=== PATIENT | female | born 1950 | race Caucasian/White ===

== ENCOUNTER → 2017-09-09 | Outpatient (CLI) | payer OTHER ==
--- NOTE | 2017-09-10 11:51 | MG ---
HISTORY: SCREENING Comparison: 06/14/2016 FINDINGS: Bilateral CC and MLO projections of the right and left breast were obtained. Scattered fibroglandula r tissue is seen to be present. A biopsy clip is present within the upper-outer quadrant of the right breast. No significant architectural distortion, mass or clustered microcalcifications can be observ ed to suggest malignancy. No skin thickening or nipple retraction is appreciated. No pathological lymphadenopathy can be identified. Benign-appearing calcifications scattered throughout the right and left breasts are observed. IMPRESSION: NO RADIOGRAPHIC EVIDENCE OF MALIGNANCY. ACR CATEGORY 2 - benign findings. FOLLOW-UP EXAM 1 YEAR. Diagnostic CAD was utilized and reviewed. * 0 (ZERO) - ASSESSMENT INCOMPLETE; ADDITIONAL IMAGING IS NEEDED. * 1/ (ONE) - NEGATIVE. * 2/II (TWO) - BENIGN FINDINGS. * 3/III (THREE) - PROBABLY BENIGN FINDING; SHORT INTERVAL FOLLOW-UP SUGGESTED. * 4/IV (FOUR) - SUSPICIOUS ABNORMALITY; BIOPSY SHOULD BE CONSIDERED. * 5/V - HIGHLY SUSPICIOUS OF MALIGNANCY; BIOPSY SHOULD BE PERFORMED. A NEGATIVE X-RAY REPORT SHOULD NOT DELAY BIOPSY IF A DOMINANT OR CLINICALLY SUSPICIOUS MASS IS PRESENT; 4 TO 8 PERCENT OF CANCERS ARE NOT IDENTIFIED BY X-RAY. A NEGA TIVE REPORT MAY REINFORCE THE CLINICAL IMPRESSION. ADENOSIS AND DENSE BREASTS MAY OBSCURE AN UNDERLY ING NEOPLASM. Reported By:
== END ==
LOC: RAD 10:41
PROVIDERS: ATTEND Specialist
DX: Z12.31 Encounter for screening mammogram for malignant neoplasm of breast (principal)
CPT/HCPCS: 77067

== ENCOUNTER 2019-04-10 07:25 | Inpatient (IN) ==
[2019-04-10 10:25] LABS: BASOPHILS % (AUTO) 0.2 % (0.2-1.0); HEMATOCRIT 43.5 % (36.0-47.0); LYMPHOCYTES # (AUTO) 0.6 X10^3/uL (1.3-2.9); LYMPHOCYTES % (AUTO) 5.1 % (21.0-51.0); MEAN CORPUSCULAR HEMOGLOBIN 31.2 pg (27.0-34.0); MEAN CORPUSCULAR HGB CONC 34.6 g/dL (33.0-35.0); MEAN CORPUSCULAR VOLUME 90.1 fL (80.0-100.0); MEAN PLATELET VOLUME 6.8 fL (7.4-11.0); MONOCYTES # (AUTO) 1.2 x10^3/uL (0.3-0.8); MONOCYTES % (AUTO) 10.6 % (0.0-13.0); NEUTROPHILS # (AUTO) 9.2 x10^3/uL (2.2-4.8); NEUTROPHILS % (AUTO) 84.1 % (42.0-75.0); PLATELET COUNT 407 X10^3/uL (150.0-450.0); RED BLOOD COUNT 4.83 X10^6/uL (3.5-5.4); RED CELL DISTRIBUTION WIDTH 14.5 % (11.6-16.5)
[2019-04-10 10:40] LABS: ALANINE AMINOTRANSFERASE 24 Units/L (12-78); ALBUMIN 2.9 g/dL (3.4-5.0); ALKALINE PHOSPHATASE 82 Units/L (46-116); ASPARTATE AMINO TRANSFERASE 21 Units/L (15-37); BLOOD UREA NITROGEN 14 mg/dL (7-18); CALCIUM 8.8 mg/dL (8.5-10.1); CARBON DIOXIDE 32.7 mmol/L (21-32); CHLORIDE 81 mmol/L (98-107); COR CA(FOR HYPOALB) 9.7 mg/dL (8.5-10.1); CREATININE 0.58 mg/dL (0.55-1.02); TOTAL PROTEIN 6.4 g/dL (6.4-8.2); eGFR NON BLACK RACES > 60 (>60)
[2019-04-10 11:00] LABS: SODIUM 121 mmol/L (136-145)
[2019-04-10 11:33] VITALS: BMI 20.7
[2019-04-10] MEDS ORDERED: NS 1000 ML 1,000 ML ONE (12:48)
[2019-04-10] MEDS: NS 1000 ML 1,000 ML IV SCH (12:55)
[2019-04-10] MEDS: LEVAQUIN PREMIX IV 500 MG 500 MG/100 ML BAG IV SCH (12:55)
[2019-04-10] MEDS: SOLU-Medrol 40 MG VIAL IVP SCH ×3 (12:56→22:02)
[2019-04-10] MEDS: PROTONIX INJ 40 MG VIAL IVP SCH ×2 (12:56→20:37)
[2019-04-10] MEDS ORDERED: POTASSIUM CHL 40 MEQ/NS 0.45% 500 ML IV PRN (13:25)
[2019-04-10] MEDS ORDERED: KLOR-CON PO PRN (13:25)
[2019-04-10] MEDS ORDERED: K-DUR TAB 20 MEQ PO PRN (13:25)
[2019-04-10] MEDS ORDERED: MICRO K EXTEN CAP 10 MEQ PO PRN (13:25)
[2019-04-10] MEDS ORDERED: POTASSIUM CHL 60 MEQ/NS 0.45% 500 ML IV PRN (13:25)
[2019-04-10] MEDS ORDERED: POTASSIUM CHLORIDE LIQ 20 MEQ UDC PO PRN (13:25)
--- NOTE | 2019-04-10 16:00 | RAD ---
HISTORY: Shortness of breath Study: Single-view chest, done portably Comparison: 02/16/2019 Findings: Trachea is midline. Heart size is normal. There is pulmonary vascular congestion increased interstitial markings bilaterally. Left-sided pleural effusion is suspected. Findings have the appearance of COPD with mild superimposed CHF. Edema or infiltrate is present in the left lower lobe. Osseous structures are intact. IMPRESSION: Findings having the appearance of COPD with superimposed CHF. Left-sided pleural effusion is present with left basilar edema or infiltrate. Reported By:
[2019-04-10 16:12] LABS: BILIRUBIN,URINE NEGATIVE (NEGATIVE); BLOOD/HEMOGLOBIN,URINE 1+ (NEGATIVE); GLUCOSE, URINE NEGATIVE (NEGATIVE); KETONES,URINE NEGATIVE (NEGATIVE); LEUKOCYTE ESTERASE ,URINE NEGATIVE (NEGATIVE); NITRITES,URINE NEGATIVE (NEGATIVE); PROTEIN,URINE 1+ (NEGATIVE); UROBILINOGEN,URINE NORMAL (NORMAL)
[2019-04-10 16:20] LABS: APPEARANCE,URINE CLEAR (CLEAR); COLOR,URINE YELLOW (YELLOW)
[2019-04-10 16:21] LABS: BACTERIA,URINE NEGATIVE /HPF (NEGATIVE); SQUAMOUS EPITHELIAL CELL,UR NEGATIVE /HPF (NEGATIVE)
[2019-04-10] MEDS ORDERED: DUONEB 0.5 MG/3 MG NEB SCH (17:00)
[2019-04-10] MEDS: K-RIDER 10 MEQ/NS 100 ML 10 MEQ/100 ML BAG IV PRN ×4 (17:25→20:38)
[2019-04-10] MEDS: DUONEB 0.5 MG/3 MG NEB SCH (21:06)
[2019-04-11] MEDS: MAGNESIUM SULFATE 1 GRAM/100 mL PREMIX 1 GM/100 ML BAG IV PRN ×2 (00:24→01:25)
[2019-04-11] MEDS: NS 1000 ML 1,000 ML IV SCH ×3 (01:59→20:55)
[2019-04-11] MEDS: SOLU-Medrol 40 MG VIAL IVP SCH ×3 (05:11→20:49)
[2019-04-11 05:13] LABS: BASOPHILS % (AUTO) 0 % (0.2-1.0); HEMATOCRIT 42.3 % (36.0-47.0); HEMOGLOBIN 14.7 g/dL (12.0-16.0); LYMPHOCYTES # (AUTO) 0.3 X10^3/uL (1.3-2.9); LYMPHOCYTES % (AUTO) 2.3 % (21.0-51.0); MEAN CORPUSCULAR HGB CONC 34.7 g/dL (33.0-35.0); MEAN CORPUSCULAR VOLUME 89.3 fL (80.0-100.0); MEAN PLATELET VOLUME 6.5 fL (7.4-11.0); MONOCYTES # (AUTO) 1.3 x10^3/uL (0.3-0.8); MONOCYTES % (AUTO) 9.8 % (0.0-13.0); NEUTROPHILS % (AUTO) 87.9 % (42.0-75.0); PLATELET COUNT 403 X10^3/uL (150.0-450.0); RED BLOOD COUNT 4.74 X10^6/uL (3.5-5.4); RED CELL DISTRIBUTION WIDTH 14.7 % (11.6-16.5); WHITE BLOOD COUNT 13.6 X10^3/uL (3.6-10.0)
[2019-04-11 05:25] LABS: ALANINE AMINOTRANSFERASE 24 Units/L (12-78); ALBUMIN 2.7 g/dL (3.4-5.0); ALKALINE PHOSPHATASE 77 Units/L (46-116); ASPARTATE AMINO TRANSFERASE 18 Units/L (15-37); BLOOD UREA NITROGEN 11 mg/dL (7-18); CALCIUM 8.7 mg/dL (8.5-10.1); CARBON DIOXIDE 29.9 mmol/L (21-32); CHLORIDE 83 mmol/L (98-107); COR CA(FOR HYPOALB) 9.7 mg/dL (8.5-10.1); COR NA(FOR HYPERGLY) 120 mmol/L (136-145); CREATININE 0.53 mg/dL (0.55-1.02); TOTAL PROTEIN 6.2 g/dL (6.4-8.2); eGFR NON BLACK RACES > 60 (>60)
[2019-04-11 05:32] LABS: ABG BASE EXCESS 8.7 mmol/L (-2.0-2.0)
[2019-04-11 05:33] LABS: ABG ALLEN TEST POS; ABG HCO3 34.1 mmol/L (22-26)
[2019-04-11 05:37] LABS: SODIUM 119 mmol/L (136-145)
--- NOTE | 2019-04-11 05:57 | RAD ---
Examination: AP chest History: Hypoxia SOB Comparison 04/10/2019 Findings: Continued normal heart size. Vascular congestion with increasing interstitial infiltrates consistent with progressive pulmonary edema. Persistent opacity left base consistent with airspace disease and pleural fluid. Impression: Increasing interstitial disease consistent with progressive pulmonary edema. Stable pleural-parenchymal changes left base, likely related to pneumonia with pleural fluid. Reported By:
[2019-04-11] MEDS ORDERED: LASIX IVP ONE (07:30)
[2019-04-11] MEDS: DUONEB 0.5 MG/3 MG NEB SCH (09:44)
[2019-04-11] MEDS: LEVAQUIN PREMIX IV 500 MG 500 MG/100 ML BAG IV SCH (10:04)
[2019-04-11] MEDS: PROTONIX INJ 40 MG VIAL IVP SCH ×2 (10:05→20:49)
[2019-04-11 10:31] LABS: ABG BASE EXCESS 10.4 mmol/L (-2.0-2.0)
[2019-04-11 10:32] LABS: ABG HCO3 34.3 mmol/L (22-26)
[2019-04-11] MEDS: Atrovent NEB TX 0.02% NEB SCH ×3 (12:09→20:45)
[2019-04-11 12:28] LABS: ABG BASE EXCESS 10.6 mmol/L (-2.0-2.0)
[2019-04-11 12:29] LABS: ABG ALLEN TEST POS; ABG HCO3 35.1 mmol/L (22-26)
[2019-04-11] MEDS ORDERED: SOLU-Medrol 40 MG VIAL IVP SCH (14:00)
[2019-04-11] MEDS ORDERED: MORPHINE SULFATE INJ 2 MG INJ IVP PRN (23:14)
[2019-04-11] MEDS ORDERED: MORPHINE SULFATE INJ 2 MG INJ ONE (23:19)
[2019-04-12] MEDS ORDERED: LASIX IVP ONE (00:38)
[2019-04-12] MEDS ORDERED: VALIUM PO PRN ×2 (00:38→12:11)
[2019-04-12] MEDS ORDERED: LASIX ONE ×2 (00:40→05:09)
[2019-04-12] MEDS ORDERED: VALIUM ONE ×2 (00:40→09:57)
[2019-04-12] MEDS: SOLU-Medrol 40 MG VIAL IVP SCH ×4 (03:51→20:29)
[2019-04-12] MEDS: NS 1000 ML 1,000 ML IV SCH ×2 (04:09→16:45)
[2019-04-12 05:18] LABS: BASOPHILS % (AUTO) 0.1 % (0.2-1.0); HEMOGLOBIN 15.4 g/dL (12.0-16.0); LYMPHOCYTES # (AUTO) 0.2 X10^3/uL (1.3-2.9); LYMPHOCYTES % (AUTO) 1.2 % (21.0-51.0); MEAN CORPUSCULAR HEMOGLOBIN 31.1 pg (27.0-34.0); MEAN CORPUSCULAR HGB CONC 34.3 g/dL (33.0-35.0); MEAN CORPUSCULAR VOLUME 90.6 fL (80.0-100.0); MEAN PLATELET VOLUME 6.6 fL (7.4-11.0); MONOCYTES # (AUTO) 1.6 x10^3/uL (0.3-0.8); NEUTROPHILS # (AUTO) 16.1 x10^3/uL (2.2-4.8); NEUTROPHILS % (AUTO) 89.7 % (42.0-75.0); PLATELET COUNT 384 X10^3/uL (150.0-450.0); RED BLOOD COUNT 4.96 X10^6/uL (3.5-5.4); RED CELL DISTRIBUTION WIDTH 14.7 % (11.6-16.5)
[2019-04-12] MEDS ORDERED: NS 100 ML IV 100 ML IV ONE (05:19)
[2019-04-12 05:40] LABS: ALANINE AMINOTRANSFERASE 22 Units/L (12-78); ALBUMIN 2.6 g/dL (3.4-5.0); ALKALINE PHOSPHATASE 73 Units/L (46-116); ASPARTATE AMINO TRANSFERASE 18 Units/L (15-37); BLOOD UREA NITROGEN 12 mg/dL (7-18); CALCIUM 8.8 mg/dL (8.5-10.1); CARBON DIOXIDE 33.2 mmol/L (21-32); CHLORIDE 90 mmol/L (98-107); COR CA(FOR HYPOALB) 9.9 mg/dL (8.5-10.1); COR NA(FOR HYPERGLY) 129 mmol/L (136-145); CREATININE 0.62 mg/dL (0.55-1.02); MAGNESIUM 2.1 mg/dL (1.7-2.9); SODIUM 128 mmol/L (136-145); TOTAL PROTEIN 6.3 g/dL (6.4-8.2); eGFR NON BLACK RACES > 60 (>60)
[2019-04-12] MEDS: LASIX IVP SCH ×3 (07:01→21:00)
--- NOTE | 2019-04-12 08:22 | RAD ---
Portable chest x-ray Clinical indication: Shortness of breath Comparison: 04/11/2019. Findings: There is progressive in of previously described bilateral interstitial airspace opacities with Lucinda B-lines reflective of pulmonary edema with more confluent ground-glass alveolar opacification within the left perihilar region and right lower lobe. There is a small left-sided pleural effusion with associated passive atelectasis. No free air or pneumothorax is identified. The heart size is stable. Impression: Further progression of bilateral interstitial airspace opacities suggesting pulmonary edema Evolving alveolar ground-glass components of airspace disease within the right lower lobe and left perihilar region which may reflect alveolar edema or superimposed pneumonia Small left-sided pleural effusion with associated passive atelectasis without or with superimposed pneumonia Reported By:
[2019-04-12] MEDS: LEVAQUIN PREMIX IV 500 MG 500 MG/100 ML BAG IV SCH (08:51)
[2019-04-12] MEDS: PROTONIX INJ 40 MG VIAL IVP SCH ×2 (08:52→20:28)
[2019-04-12] MEDS: Atrovent NEB TX 0.02% NEB SCH ×4 (09:08→21:30)
[2019-04-12 09:41] LABS: ABG BASE EXCESS 11.6 mmol/L (-2.0-2.0)
[2019-04-12 09:42] LABS: ABG ALLEN TEST POS; ABG HCO3 37.1 mmol/L (22-26)
[2019-04-12] MEDS ORDERED: VALIUM PO ONE (09:55)
--- NOTE | 2019-04-12 10:01 | DR.H&P ---
H&P - History & Physical for Day of: H&P Date: 04/10/19 - Chief Complaint Chief Complaint: SOB, LOWER LEG SWELLING - History of Present Illness History of Present Illness: 69 WF DIRECT ADMIT PER DR LEAVITT WITH CO BILATERAL LOWER EXTREMITY EDEMA AND INCREASED SOB. PT REPORTS SHE HAD BEEN TAKING LASIX BID FOR SWELLING WITHOUT IMPROVEMENT. PT WAS RECENTLY DX WITH STAGE 3 LUNG CA. PT HAS YET TO SEE ONCOLOGIST. PT HAS PMH OF COPD, DENIES ANY CAD. PT WAS HYPONATREMIC ON ADMISSION, RESP DISTRESS. PT WAS ADMITTED TO ICU FOR TREATMENT OF ACUTE ILLNESS. - Past Medical History Past Medical History: Anxiety, COPD Additional Medical History: LUNG CA - Past Surgical History Surgical History: No History - Family History Family Medical History: [place] - Social History Does patient currently use any type of tobacco product: Yes Have you used tobacco products in the last 12 months: Yes Type of Tobacco Use: Cigarettes How many years tobacco product used: 40 Alcohol Use: None Drug Use: None - Medications Home Medications: Penicillins Allergy (Verified 04/10/19 11:35) CONTINUE taking the following medications furosemide 20 mg PO BID 04/10/19 [History] levothyroxine 88 mcg PO DAILY 04/10/19 [History] losartan-hydrochlorothiazide 1 tab PO DAILY 04/10/19 [History] ondansetron 8 mg PO TID PRN 04/10/19 [History] pantoprazole 60 mg PO BID 04/10/19 [History] potassium chloride 10 meq PO BID 04/10/19 [History] promethazine 25 mg PO TID PRN 04/10/19 [History] ranitidine HCl 150 mg PO DAILYHS 04/10/19 [History] tizanidine 4 mg PO DAILYHS 04/10/19 [History] umeclidinium-vilanterol [Anoro Ellipta] 1 inh INHALATION DAILY 04/10/19 [History] venlafaxine 37.5 mg PO DAILY 04/10/19 [History] - Review of Systems Constitutional: Weakness Eyes: No Symptoms Reported ENT: No Symptoms Reported Respiratory: Shortness of Breath Cardiovascular: Edema Gastrointestinal: No Symptoms Reported Genitourinary: No Symptoms Reported Musculoskeletal: No Symptoms Reported Skin: No Symptoms Reported Neurological: Weakness - Physical Exam Vital Signs: Temperature 98.5 F Pulse Rate [Right Brachial] 116 Pulse Rate 103 Respiratory Rate 30 Blood Pressure [Right Arm] 137/88 O2 Sat by Pulse Oximetry 89 Oriented: Normal Eyes: Normal Ear: Normal Nose: Normal Throat: Normal Respiratory: Diminished Throughout Cardiovascular: Tachycardia, Edema (+1 BILATERAL LOWER EXTREMITY EDEMA) : Normal Auscultation: Bowel Sounds: Normal Palpation: Normal Tenderness: Normal Skin: Decreased Turgur Musculoskeletal: Normal Psychiatric: Anxiety Affect: Anxious Speech Pattern: Clear, Appropriate - Assessment/Plan (1) SOB (shortness of breath) Status: Acute Plan: ADMIT, ICU. CARDIAC MONITORING, CONTINUOUS SUPPLEMENTAL O2,. RESP THERAPY, BIPAP PRN, ABG ON ADMISSION. CXR, STRICT I & OS WHITNEY CATH CARE. VERIFY HOME MEDICATIONS, OBTAIN PATH REPORT FROM RECENT BRONCHOSCOPY, PET SCAN RESULTS RECENT D/C SUMMARY (2) COPD exacerbation Status: Acute (3) Hyponatremia Status: Acute (4) Lung cancer Status: Acute (5) Hypoxemia Status: Acute - Allergies Allergies/Adverse Reactions: Allergies Allergy/AdvReac Type Severity Reaction Status Date / Time Penicillins Allergy Verified 04/10/19 11:35
[2019-04-12 11:18] LABS: ABG BASE EXCESS 12.6 mmol/L (-2.0-2.0)
[2019-04-12 11:19] LABS: ABG ALLEN TEST POS
[2019-04-12 15:12] LABS: ABG BASE EXCESS 15.5 mmol/L (-2.0-2.0)
[2019-04-12 15:13] LABS: ABG HCO3 40.7 mmol/L (22-26)
--- NOTE | 2019-04-12 21:56 | CT ---
CT brain with and without contrast Indication: Change in mental status Comparison: None available Technique: Multiple axial images of the brain were obtained from the skull base to the vertex before and after the administration of IV contrast. Dose reduction techniques including automated exposure control (AEC) and adjustment of mA and kV were utilized. Findings: Mild generalized cerebral atrophy with bilateral periventricular and deep white matter hypoattenuation. No acute intraparenchymal hemorrhage or mass can be identified. No extra-axial fluid collections are seen. No alteration in the attenuation of the brain parenchyma can be identified to suggest acute or subacute ischemic change. The ventricular system is symmetric and nondilated. The extracranial structures are grossly unremarkable. There is a left maxillary sinus mucous retention cyst/polyp. Postcontrast imaging demonstrates no abnormal intra-axial or extra-axial enhancement. The anterior and posterior intracranial arterial circulation demonstrates no evidence of occlusion or high-grade stenosis given limitations of a non CT5 examination.4 IMPRESSION: No acute intracranial process is identified. Generalized cerebral atrophy with bilateral periventricular and deep white matter hypoattenuation is nonspecific however suggest sequela of chronic microvascular ischemic disease. Mild left maxillary sinus mucosal disease. Reported By:
[2019-04-13] MEDS: SOLU-Medrol 40 MG VIAL IVP SCH ×4 (03:36→21:12)
[2019-04-13 04:27] LABS: BASOPHILS % (AUTO) 0.3 % (0.2-1.0); HEMATOCRIT 44.2 % (36.0-47.0); HEMOGLOBIN 14.8 g/dL (12.0-16.0); LYMPHOCYTES # (AUTO) 0.2 X10^3/uL (1.3-2.9); LYMPHOCYTES % (AUTO) 1.4 % (21.0-51.0); MEAN CORPUSCULAR HEMOGLOBIN 30.5 pg (27.0-34.0); MEAN CORPUSCULAR HGB CONC 33.4 g/dL (33.0-35.0); MEAN CORPUSCULAR VOLUME 91.2 fL (80.0-100.0); MEAN PLATELET VOLUME 6.4 fL (7.4-11.0); MONOCYTES # (AUTO) 1.3 x10^3/uL (0.3-0.8); MONOCYTES % (AUTO) 7.9 % (0.0-13.0); NEUTROPHILS # (AUTO) 15.3 x10^3/uL (2.2-4.8); NEUTROPHILS % (AUTO) 90.4 % (42.0-75.0); PLATELET COUNT 347 X10^3/uL (150.0-450.0); RED BLOOD COUNT 4.85 X10^6/uL (3.5-5.4); RED CELL DISTRIBUTION WIDTH 15.4 % (11.6-16.5); WHITE BLOOD COUNT 16.9 X10^3/uL (3.6-10.0)
[2019-04-13 04:37] LABS: ALANINE AMINOTRANSFERASE 22 Units/L (12-78); ALBUMIN 2.4 g/dL (3.4-5.0); ALKALINE PHOSPHATASE 71 Units/L (46-116); ASPARTATE AMINO TRANSFERASE 17 Units/L (15-37); BLOOD UREA NITROGEN 20 mg/dL (7-18); CALCIUM 8.9 mg/dL (8.5-10.1); CARBON DIOXIDE 34.6 mmol/L (21-32); CHLORIDE 96 mmol/L (98-107); COR CA(FOR HYPOALB) 10.2 mg/dL (8.5-10.1); COR NA(FOR HYPERGLY) 136 mmol/L (136-145); CREATININE 0.69 mg/dL (0.55-1.02); SODIUM 135 mmol/L (136-145); eGFR NON BLACK RACES > 60 (>60)
[2019-04-13 04:50] LABS: PLATELET MORPHOLOGY COMMENT NORMAL (NORMAL)
[2019-04-13] MEDS: LASIX IVP SCH ×3 (05:14→21:27)
[2019-04-13] MEDS: NS 1000 ML 1,000 ML IV SCH ×2 (05:17→19:19)
[2019-04-13 05:48] LABS: ABG BASE EXCESS 17.1 mmol/L (-2.0-2.0)
[2019-04-13 05:52] LABS: ABG HCO3 41.9 mmol/L (22-26)
--- NOTE | 2019-04-13 08:10 | RAD ---
HISTORY: Edema, stage III lung cancer Study: Single-view chest Comparison: 04/12/2019 Findings: Trachea is midline. There is cardiomegaly with aortic uncoiling and pulmonary vascular congestion. Improvement in aeration in interstitial and alveolar spaces is noted compared to the prior study, predominantly in the right lower lobe. There is still left-sided perihilar edema or infiltrate. Left pleural effusion is smaller. Osseous structures are intact. IMPRESSION: Interval improvement as described above. Reported By:
[2019-04-13] MEDS ORDERED: ZOFRAN TAB 4 MG PO PRN (08:19)
[2019-04-13] MEDS ORDERED: PHENERGAN TAB 25 MG PO PRN (08:19)
[2019-04-13] MEDS: Atrovent NEB TX 0.02% NEB SCH ×4 (08:55→21:43)
[2019-04-13] MEDS: EFFEXOR XR 37.5 MG CAP PO SCH (09:06)
[2019-04-13] MEDS: LEVAQUIN PREMIX IV 500 MG 500 MG/100 ML BAG IV SCH (09:06)
[2019-04-13] MEDS: SYNTHROID 88 mcg TAB PO SCH (09:07)
[2019-04-13] MEDS: PROTONIX INJ 40 MG VIAL IVP SCH ×2 (09:07→21:11)
[2019-04-13] MEDS ORDERED: MAGIC MOUTHWASH MT PRN (09:50)
[2019-04-13] MEDS: DIFLUCAN 200 MG IV PREMIX* 200 MG/100 ML BAG IV SCH (10:35)
[2019-04-13] MEDS: LOVENOX INJ 40 MG SYR SC SCH (10:36)
--- NOTE | 2019-04-13 10:44 | PCM.PROG ---
Progress Note - Progress Note for Day of Date of Exam: 04/13/19 - Subjective Subjective: IS BEING TREATED FOR SHORTNESS OF BREATH, LOWER EXTREMITY EDEMA, CHF, AND PNEUMONIA. CHEST XRAY REVEALED A LEFT SIDED PLEURAL EFFUSION PRESENT WITH LEFT BASILAR EDEMA OR INFILTRATE. SHE HAS A NEW DIAGNOSIS OF STAGE 3 LUNG CANCER AND HAS A HISTORY OF COPD. SHE HAS BEEN UTILIZING THE BIPAP THROUGHOUT THE NIGHT. TODAY, SHE IS ALERT AND ORIENTED, LYING IN BED ON MORNING ROUNDS. SHE CONTINUES WITH COMPLAINTS OF SHORTNESS OF BREATH TODAY. ON EXAMINATION, HEART IS REGULAR IN RATE AND RHYTHM. BILATERAL LUNGS ARE NOTED WITH DIMINISHED LUNG SOUNDS THROUGHOUT. ABDOMEN IS FLAT, SOFT, AND NON-TENDER WITH NORMAL BOWEL SOUNDS IN ALL QUADRANTS. THERE IS TRACE EDEMA TO LOWER EXTREMITIES. HER VITALS THIS MORNING ARE: 98.4-113-22-94%NC-126/82. LABS WERE OBTAINED. ABNORMAL LAB VALUES INCLUDE THE FOLLOWING: WBC 16.9, SODIUM 135, CHLORIDE 96, CARBON DIOXIDE 34.6, BUN 20, GLUCOSE 149, CALCIUM 10.2, TOTAL PROTEIN 6.0, ALBUMIN 2.4. SPUTUM CULTURE IS PENDING. A CHEST XRAY WAS OBTAINED AND REVEALED: Trachea is midline. There is cardiomegaly with aortic uncoiling and pulmonary vascular congestion. Improvement in aeration in interstitial and alveolar spaces is noted compared to the prior study, predominantly in the right lower lobe. There is still left-sided perihilar edema or infiltrate. Left pleural effusion is smaller. Osseous structures are intact. AN ABG WAS OBTAINED AND REVEALED: PH 7.540, PC02 49.0, P02 61.0, HC03 41.9, 02 SATURATION 94.0, BASE EXCESS 17.1. SHE IS CURRENTLY RECEIVING RESPIRATORY TREATMENTS, LEVAQUIN 500MG IV DAILY, SOLU-MEDROL 80MG IV Q6H AJ, AND NORMAL SALINE AT 50ML/HR. TODAY, WE WILL ADD MUCOMYST TO NEB TX, DECADROM TO NEB TX, DIFLUCAN 200MG IV DAILY, MAGIC MOUTHWASH, AND CHANGE VALIUM TID. OTHERWISE, WE WILL FOLLOW UP WITH AM LABS, CHEST XRAY, AND ABG AND CONTINUE TO MONITOR. - Past Medical Family Social History Past Med/Fam/Surg Hx: No changes since H&P Allergies: Allergies Penicillins Allergy (Verified 04/10/19 11:35) - Review of Systems ROS: No change since H&P - Vital Signs and I&O's Vital Signs: Temperature 98.4 F Pulse Rate [Right Brachial] 110 Pulse Rate 105 Respiratory Rate 24 Blood Pressure [Right Arm] 128/72 O2 Sat by Pulse Oximetry 96 Intake and Output: Intake & Output 04/10/19 04/11/19 04/12/19 04/13/19 12:59 12:59 11:59 11:59 Intake Total 2027 Output Total 0 / 4400 Balance -2371 / -2371 - Physical Exam Oriented: Normal Eyes: Normal Ear: Normal Nose: Normal Throat: Normal Respiratory: Generalized, Diminished Cardiovascular: Tachycardia, Edema ( BILATERAL LOWER EXTREMITY TRACE EDEMA) : Normal Auscultation: Bowel Sounds: Normal Palpation: Normal Tenderness: Normal Skin: Decreased Turgur Musculoskeletal: Normal Psychiatric: Anxiety Affect: Anxious Speech Pattern: Clear, Appropriate - Laboratory and Diagnostics Result Diagrams: 04/13/19 04:12 04/13/19 04:12 Labs: 04/13/19 09:33 Sputum - Expectorated Sputum - Final Laboratory WBC 16.9 X10^3/uL (3.6-10.0) H 04/13/19 04:12 RBC 4.85 X10^6/uL (3.5-5.4) 04/13/19 04:12 Hgb 14.8 g/dL (12.0-16.0) 04/13/19 04:12 Hct 44.2 % (36.0-47.0) 04/13/19 04:12 MCV 91.2 fL (80.0-100.0) 04/13/19 04:12 MCH 30.5 pg (27.0-34.0) 04/13/19 04:12 MCHC 33.4 g/dL (33.0-35.0) 04/13/19 04:12 RDW 15.4 % (11.6-16.5) 04/13/19 04:12 Plt Count 347 X10^3/uL (150.0-450.0) 04/13/19 04:12 Plt Count Comment Adequate (ADEQUATE) 04/13/19 04:12 MPV 6.4 fL (7.4-11.0) L 04/13/19 04:12 Neut % (Auto) 90.4 % (42.0-75.0) H 04/13/19 04:12 Lymph % (Auto) 1.4 % (21.0-51.0) L 04/13/19 04:12 [place] % (Auto) 7.9 % (0.0-13.0) 04/13/19 04:12 Eos % (Auto) 0.0 % (0.9-2.9) L 04/13/19 04:12 Baso % (Auto) 0.3 % (0.2-1.0) 04/13/19 04:12 Neut # (Auto) 15.3 x10^3/uL (2.2-4.8) H 04/13/19 04:12 Lymph # (Auto) 0.2 X10^3/uL (1.3-2.9) L 04/13/19 04:12 [place] # (Auto) 1.3 x10^3/uL (0.3-0.8) H 04/13/19 04:12 Eos # (Auto) 0.0 x10^3/uL (0.0-0.2) 04/13/19 04:12 Baso # (Auto) 0.0 X10^3/uL (0.0-0.1) 04/13/19 04:12 Absolute Nucleated RBC 0.0 /100WBC 04/13/19 04:12 Total Counted 100 04/13/19 04:12 Neutrophils % (Manual) 94 % (39-76) H 04/13/19 04:12 Lymphocytes % (Manual) 3 % (13-43) L 04/13/19 04:12 Monocytes % (Manual) 3 % (4-9) L 04/13/19 04:12 Plt Morphology Comment Normal (NORMAL) 04/13/19 04:12 RBC Morphology Normal (NORMAL) 04/13/19 04:12 Sample Site Rbra 04/13/19 05:44 ABG pH 7.540 (7.35-7.45) H 04/13/19 05:44 ABG pCO2 49.0 mmHg (35.0-45.0) H 04/13/19 05:44 ABG pO2 61.0 mmHg (80.0-100.0) L 04/13/19 05:44 ABG HCO3 41.9 mmol/L (22-26) H* 04/13/19 05:44 ABG O2 Saturation 94.0 % (90-100) 04/13/19 05:44 ABG Base Excess 17.1 mmol/L (-2.0-2.0) H 04/13/19 05:44 Brodie Test Na 04/13/19 05:44 A-a Gradient 306.0 mmHg 04/13/19 05:44 FiO2 60.0 04/13/19 05:44 Blood Gas Comments Antonio abg well-mtf 04/13/19 05:44 Sodium 135 mmol/L (136-145) L 04/13/19 04:12 Corrected Sodium 136 mmol/L (136-145) 04/13/19 04:12 Potassium 3.5 mmol/L (3.5-5.1) 04/13/19 04:12 Chloride 96 mmol/L (98-107) L 04/13/19 04:12 Carbon Dioxide 34.6 mmol/L (21-32) H 04/13/19 04:12 BUN 20 mg/dL (7-18) H 04/13/19 04:12 Creatinine 0.69 mg/dL (0.55-1.02) 04/13/19 04:12 Est GFR (MDRD) Af Amer > 60 (>60) 04/13/19 04:12 Est GFR (MDRD) Non-Af > 60 (>60) 04/13/19 04:12 Glucose 149 mg/dL (65-99) H 04/13/19 04:12 Calcium 8.9 mg/dL (8.5-10.1) 04/13/19 04:12 Corrected Calcium 10.2 mg/dL (8.5-10.1) H 04/13/19 04:12 Magnesium 2.1 mg/dL (1.7-2.9) 04/12/19 04:34 Total Bilirubin 0.40 mg/dL (0.2-1.0) 04/13/19 04:12 AST 17 Units/L (15-37) 04/13/19 04:12 ALT 22 Units/L (12-78) 04/13/19 04:12 Alkaline Phosphatase 71 Units/L (46-116) 04/13/19 04:12 B-Natriuretic Peptide 85.8 pg/mL (0-79) H 04/10/19 09:55 Total Protein 6.0 g/dL (6.4-8.2) L 04/13/19 04:12 Albumin 2.4 g/dL (3.4-5.0) L 04/13/19 04:12 Globulin 3.6 g/dL (2.5-4.5) 04/13/19 04:12 Albumin/Globulin Ratio 0.7 Ratio (1.1-2.1) L 04/13/19 04:12 Specimen Type Catherized urine 04/10/19 16:00 Urine Color Yellow (YELLOW) 04/10/19 16:00 Urine Appearance Clear (CLEAR) 04/10/19 16:00 Urine pH 7.0 (5.0 - 8.0) 04/10/19 16:00 Ur Specific [place] 1.015 (1.000-1.030) 04/10/19 16:00 Urine Protein 1+ (NEGATIVE) 04/10/19 16:00 Urine Glucose (UA) Negative (NEGATIVE) 04/10/19 16:00 Urine Ketones Negative (NEGATIVE) 04/10/19 16:00 Urine Occult Blood 1+ (NEGATIVE) 04/10/19 16:00 Urine Nitrite Negative (NEGATIVE) 04/10/19 16:00 Urine Bilirubin Negative (NEGATIVE) 04/10/19 16:00 Urine Urobilinogen Normal (NORMAL) 04/10/19 16:00 Ur Leukocyte Esterase Negative (NEGATIVE) 04/10/19 16:00 Urine RBC 5-10 /HPF (0-3) A 04/10/19 16:00 Urine WBC None seen /HPF (0-5) 04/10/19 16:00 Ur Squamous Epith Cells Negative /HPF (NEGATIVE) 04/10/19 16:00 Urine Bacteria Negative /HPF (NEGATIVE) 04/10/19 16:00 Ur Culture Indicated? No/not indicated 04/10/19 16:00 - Plan (1) Pneumonia Status: Acute Qualifiers: Pneumonia type: due to unspecified organism Laterality: bilateral Lung location: unspecified part of lung Qualified Code(s): J18.9 - Pneumonia, unspecified organism Plan: LEVAQUIN IV DAILY, RESPIRATORY TX, SUPPLEMENTAL OXYGEN, BIPAP, CONTINUE TO MONITOR (2) CHF (congestive heart failure) Status: Acute Qualifiers: Heart failure type: unspecified Heart failure chronicity: acute Qualified Code(s): I50.9 - Heart failure, unspecified Plan: IV LASIX, RESPIRATORY TX, BIPAP, CONTINUE TO MONITOR (3) Respiratory failure with hypoxia Status: Acute Qualifiers: Chronicity: acute Qualified Code(s): J96.01 - Acute respiratory failure with hypoxia (4) Lung cancer Status: Acute Qualifiers: Laterality: unspecified laterality Lung location: unspecified part of lung Qualified Code(s): C34.90 - Malignant neoplasm of unspecified part of unspecified bronchus or lung (5) Hyponatremia Status: Acute (6) COPD (chronic obstructive pulmonary disease) Status: Chronic
[2019-04-13] MEDS: VALIUM PO SCH ×3 (11:16→21:28)
[2019-04-13] MEDS: DECADRON JET NEB (RESP USE) NEB SCH ×4 (12:14→21:44)
[2019-04-13] MEDS: MUCOMYST 20% 200 MG/ML NEB SCH ×3 (12:14→21:44)
--- NOTE | 2019-04-13 13:44 | PCM.PROG ---
Progress Note - Progress Note for Day of Date of Exam: 04/12/19 - Subjective Subjective: Mrs. To is a 69-year-old white female, who is a patient of Dr. Carlton private practice, who was admitted on 04/10/19, direct admit, with shortness of breath, lower extremity edema, and new diagnosis of stage 3 lung cancer. On admission, the patient was started on antibiotic therapy, re spiratory therapy, and supplemental oxygen. Sometime during the bath solution maker hours, nursing staff reported that the patient had significant respiratory distress. Pt is currently on BIpap therapy. She has a Whitney catheter with strict I&Os. Pt is on aggressive respiratory therapy, IV steroids, IV atbx, serial ABGs. Pt is asking for valium for her nerves, nursing staff reports she tolerated po valium well without increased respiratory distress, pt rested quietly. Reviewed am labs with pt and family, improving NA. Plan to continue gentle iv hydration with low dose lasix tid. - Past Medical Family Social History Past Med/Fam/Surg Hx: No changes since H&P Allergies: Allergies Penicillins Allergy (Verified 04/10/19 11:35) - Review of Systems ROS: No change since H&P - Vital Signs and I&O's Vital Signs: Temperature 98.1 F Pulse Rate [Right Brachial] 104 Pulse Rate 95 Respiratory Rate 15 Blood Pressure [Right Arm] 137/78 O2 Sat by Pulse Oximetry 92 Intake and Output: Intake & Output 04/11/19 04/12/19 04/13/19 04/14/19 12:59 11:59 11:59 11:59 Intake Total 2027 Output Total 4400 / 4400 Balance -2372 / -2372 - Physical Exam Oriented: Normal Eyes: Normal Ear: Normal Nose: Normal Throat: Normal Respiratory: Generalized, Diminished Cardiovascular: Tachycardia, Edema ( BILATERAL LOWER EXTREMITY TRACE EDEMA) : Normal Auscultation: Bowel Sounds: Normal Tenderness: Normal Skin: Decreased Turgur Musculoskeletal: Normal Psychiatric: Anxiety Affect: Anxious Speech Pattern: Clear, Appropriate - Laboratory and Diagnostics Result Diagrams: 04/13/19 04:12 04/13/19 04:12 Labs: 04/13/19 09:33 Sputum - Expectorated Sputum - Final Laboratory WBC 16.9 X10^3/uL (3.6-10.0) H 04/13/19 04:12 RBC 4.85 X10^6/uL (3.5-5.4) 04/13/19 04:12 Hgb 14.8 g/dL (12.0-16.0) 04/13/19 04:12 Hct 44.2 % (36.0-47.0) 04/13/19 04:12 MCV 91.2 fL (80.0-100.0) 04/13/19 04:12 MCH 30.5 pg (27.0-34.0) 04/13/19 04:12 MCHC 33.4 g/dL (33.0-35.0) 04/13/19 04:12 RDW 15.4 % (11.6-16.5) 04/13/19 04:12 Plt Count 347 X10^3/uL (150.0-450.0) 04/13/19 04:12 Plt Count Comment Adequate (ADEQUATE) 04/13/19 04:12 MPV 6.4 fL (7.4-11.0) L 04/13/19 04:12 Neut % (Auto) 90.4 % (42.0-75.0) H 04/13/19 04:12 Lymph % (Auto) 1.4 % (21.0-51.0) L 04/13/19 04:12 [place] % (Auto) 7.9 % (0.0-13.0) 04/13/19 04:12 Eos % (Auto) 0.0 % (0.9-2.9) L 04/13/19 04:12 Baso % (Auto) 0.3 % (0.2-1.0) 04/13/19 04:12 Neut # (Auto) 15.3 x10^3/uL (2.2-4.8) H 04/13/19 04:12 Lymph # (Auto) 0.2 X10^3/uL (1.3-2.9) L 04/13/19 04:12 [place] # (Auto) 1.3 x10^3/uL (0.3-0.8) H 04/13/19 04:12 Eos # (Auto) 0.0 x10^3/uL (0.0-0.2) 04/13/19 04:12 Baso # (Auto) 0.0 X10^3/uL (0.0-0.1) 04/13/19 04:12 Absolute Nucleated RBC 0.0 /100WBC 04/13/19 04:12 Total Counted 100 04/13/19 04:12 Neutrophils % (Manual) 94 % (39-76) H 04/13/19 04:12 Lymphocytes % (Manual) 3 % (13-43) L 04/13/19 04:12 Monocytes % (Manual) 3 % (4-9) L 04/13/19 04:12 Plt Morphology Comment Normal (NORMAL) 04/13/19 04:12 RBC Morphology Normal (NORMAL) 04/13/19 04:12 Sample Site Rb 04/13/19 05:44 ABG pH 7.540 (7.35-7.45) H 04/13/19 05:44 ABG pCO2 49.0 mmHg (35.0-45.0) H 04/13/19 05:44 ABG pO2 61.0 mmHg (80.0-100.0) L 04/13/19 05:44 ABG HCO3 41.9 mmol/L (22-26) H* 04/13/19 05:44 ABG O2 Saturation 94.0 % (90-100) 04/13/19 05:44 ABG Base Excess 17.1 mmol/L (-2.0-2.0) H 04/13/19 05:44 Brodie Test Na 04/13/19 05:44 A-a Gradient 306.0 mmHg 04/13/19 05:44 FiO2 60.0 04/13/19 05:44 Blood Gas Comments Antonio abg well-mtf 04/13/19 05:44 Sodium 135 mmol/L (136-145) L 04/13/19 04:12 Corrected Sodium 136 mmol/L (136-145) 04/13/19 04:12 Potassium 3.5 mmol/L (3.5-5.1) 04/13/19 04:12 Chloride 96 mmol/L (98-107) L 04/13/19 04:12 Carbon Dioxide 34.6 mmol/L (21-32) H 04/13/19 04:12 BUN 20 mg/dL (7-18) H 04/13/19 04:12 Creatinine 0.69 mg/dL (0.55-1.02) 04/13/19 04:12 Est GFR (MDRD) Af Amer > 60 (>60) 04/13/19 04:12 Est GFR (MDRD) Non-Af > 60 (>60) 04/13/19 04:12 Glucose 149 mg/dL (65-99) H 04/13/19 04:12 Calcium 8.9 mg/dL (8.5-10.1) 04/13/19 04:12 Corrected Calcium 10.2 mg/dL (8.5-10.1) H 04/13/19 04:12 Magnesium 2.1 mg/dL (1.7-2.9) 04/12/19 04:34 Total Bilirubin 0.40 mg/dL (0.2-1.0) 04/13/19 04:12 AST 17 Units/L (15-37) 04/13/19 04:12 ALT 22 Units/L (12-78) 04/13/19 04:12 Alkaline Phosphatase 71 Units/L (46-116) 04/13/19 04:12 B-Natriuretic Peptide 85.8 pg/mL (0-79) H 04/10/19 09:55 Total Protein 6.0 g/dL (6.4-8.2) L 04/13/19 04:12 Albumin 2.4 g/dL (3.4-5.0) L 04/13/19 04:12 Globulin 3.6 g/dL (2.5-4.5) 04/13/19 04:12 Albumin/Globulin Ratio 0.7 Ratio (1.1-2.1) L 04/13/19 04:12 Specimen Type Catherized urine 04/10/19 16:00 Urine Color Yellow (YELLOW) 04/10/19 16:00 Urine Appearance Clear (CLEAR) 04/10/19 16:00 Urine pH 7.0 (5.0 - 8.0) 04/10/19 16:00 Ur Specific [place] 1.015 (1.000-1.030) 04/10/19 16:00 Urine Protein 1+ (NEGATIVE) 04/10/19 16:00 Urine Glucose (UA) Negative (NEGATIVE) 04/10/19 16:00 Urine Ketones Negative (NEGATIVE) 04/10/19 16:00 Urine Occult Blood 1+ (NEGATIVE) 04/10/19 16:00 Urine Nitrite Negative (NEGATIVE) 04/10/19 16:00 Urine Bilirubin Negative (NEGATIVE) 04/10/19 16:00 Urine Urobilinogen Normal (NORMAL) 04/10/19 16:00 Ur Leukocyte Esterase Negative (NEGATIVE) 04/10/19 16:00 Urine RBC 5-10 /HPF (0-3) A 04/10/19 16:00 Urine WBC None seen /HPF (0-5) 04/10/19 16:00 Ur Squamous Epith Cells Negative /HPF (NEGATIVE) 04/10/19 16:00 Urine Bacteria Negative /HPF (NEGATIVE) 04/10/19 16:00 Ur Culture Indicated? No/not indicated 04/10/19 16:00 - Plan (1) SOB (shortness of breath) Status: Acute Plan: CARDIAC MONITORING, CONTINUOUS SUPPLEMENTAL O2,. RESP THERAPY, BIPAP PRN, ABG. CXR, STRICT I & OS WHITNEY CATH CARE. VERIFY HOME MEDICATIONS, OBTAIN PATH REPORT FROM RECENT BRONCHOSCOPY, PET SCAN RESULTS RECENT D/C SUMMARY (2) COPD exacerbation Status: Acute (3) Hyponatremia Status: Acute (4) Lung cancer Status: Acute Qualifiers: Laterality: unspecified laterality Lung location: unspecified part of lung Qualified Code(s): C34.90 - Malignant neoplasm of unspecified part of unspecified bronchus or lung (5) Hypoxemia Status: Acute
[2019-04-13] MEDS: XOPENEX 1.25 MG/3 ML NEBULE NEB SCH ×2 (14:55→21:41)
[2019-04-13] MEDS: MILK OF MAGNESIA PO SCH (21:11)
[2019-04-13] MEDS: COLACE CAP 100 MG PO SCH (21:11)
[2019-04-13] MEDS: PEPCID TAB 20 MG PO SCH (21:11)
[2019-04-13] MEDS: ZANAFLEX PO SCH (21:12)
[2019-04-14] MEDS: SOLU-Medrol 40 MG VIAL IVP SCH ×3 (02:48→14:02)
[2019-04-14 04:54] LABS: BASOPHILS % (AUTO) 0 % (0.2-1.0); HEMATOCRIT 41.9 % (36.0-47.0); HEMOGLOBIN 14.1 g/dL (12.0-16.0); LYMPHOCYTES # (AUTO) 0.2 X10^3/uL (1.3-2.9); LYMPHOCYTES % (AUTO) 1.3 % (21.0-51.0); MEAN CORPUSCULAR HEMOGLOBIN 30.6 pg (27.0-34.0); MEAN CORPUSCULAR HGB CONC 33.6 g/dL (33.0-35.0); MEAN PLATELET VOLUME 6.6 fL (7.4-11.0); MONOCYTES # (AUTO) 1.1 x10^3/uL (0.3-0.8); MONOCYTES % (AUTO) 7.3 % (0.0-13.0); NEUTROPHILS # (AUTO) 14.4 x10^3/uL (2.2-4.8); NEUTROPHILS % (AUTO) 91.4 % (42.0-75.0); PLATELET COUNT 349 X10^3/uL (150.0-450.0); WHITE BLOOD COUNT 15.8 X10^3/uL (3.6-10.0)
[2019-04-14 05:04] LABS: ALANINE AMINOTRANSFERASE 28 Units/L (12-78); ALBUMIN 2.4 g/dL (3.4-5.0); ALKALINE PHOSPHATASE 76 Units/L (46-116); ASPARTATE AMINO TRANSFERASE 17 Units/L (15-37); BLOOD UREA NITROGEN 22 mg/dL (7-18); CALCIUM 8.5 mg/dL (8.5-10.1); CARBON DIOXIDE 32.9 mmol/L (21-32); CHLORIDE 97 mmol/L (98-107); COR CA(FOR HYPOALB) 9.8 mg/dL (8.5-10.1); COR NA(FOR HYPERGLY) 140 mmol/L (136-145); CREATININE 0.72 mg/dL (0.55-1.02); SODIUM 138 mmol/L (136-145); TOTAL PROTEIN 5.8 g/dL (6.4-8.2); eGFR NON BLACK RACES > 60 (>60)
[2019-04-14] MEDS: VALIUM PO SCH ×3 (05:54→21:02)
[2019-04-14] MEDS: K-RIDER 10 MEQ/NS 100 ML 10 MEQ/100 ML BAG IV PRN ×4 (05:54→17:09)
[2019-04-14] MEDS: LASIX IVP SCH ×3 (05:54→21:02)
[2019-04-14] MEDS: XOPENEX 1.25 MG/3 ML NEBULE NEB SCH ×3 (05:55→20:26)
--- NOTE | 2019-04-14 06:23 | RAD ---
HISTORY: Shortness of breath Study: Chest AP portable Comparison: 04/13/2019 Findings: The heart remains enlarged. The raffi are normal. Diffuse interstitial lung changes are again identified not significantly different from the prior examination. This could be consistent with edema or pneumonitis. It is not significantly changed from the prior examination. No definite alveolar infiltrates are identified. Minimal left pleural effusion remains. IMPRESSION: No significant change from the prior examination Reported By:
[2019-04-14] MEDS: Atrovent NEB TX 0.02% NEB SCH ×4 (08:59→20:24)
[2019-04-14] MEDS: MUCOMYST 20% 200 MG/ML NEB SCH ×4 (09:00→20:25)
[2019-04-14] MEDS: DECADRON JET NEB (RESP USE) NEB SCH ×4 (09:00→20:26)
[2019-04-14] MEDS: DIFLUCAN 200 MG IV PREMIX* 200 MG/100 ML BAG IV SCH (09:09)
[2019-04-14] MEDS: PROTONIX INJ 40 MG VIAL IVP SCH ×2 (09:09→21:01)
[2019-04-14] MEDS: LEVAQUIN PREMIX IV 500 MG 500 MG/100 ML BAG IV SCH (09:10)
[2019-04-14] MEDS: MILK OF MAGNESIA PO SCH ×2 (09:10→20:51)
[2019-04-14] MEDS: EFFEXOR XR 37.5 MG CAP PO SCH (09:27)
[2019-04-14] MEDS: SYNTHROID 88 mcg TAB PO SCH (09:28)
[2019-04-14] MEDS: LOVENOX INJ 40 MG SYR SC SCH (09:28)
[2019-04-14 11:08] LABS: ABG BASE EXCESS 15.7 mmol/L (-2.0-2.0)
[2019-04-14 11:09] LABS: ABG ALLEN TEST POS; ABG HCO3 40.2 mmol/L (22-26)
[2019-04-14] MEDS: MAGNESIUM SULFATE 1 GRAM/100 mL PREMIX 1 GM/100 ML BAG IV PRN ×2 (15:49→18:34)
[2019-04-14] MEDS: COLACE CAP 100 MG PO SCH ×2 (16:00→20:51)
[2019-04-14] MEDS: NS 1000 ML 1,000 ML IV SCH ×3 (16:00→21:02)
--- NOTE | 2019-04-14 19:58 | PCM.PROG ---
Progress Note - Progress Note for Day of Date of Exam: 04/14/19 - Subjective Subjective: IS BEING TREATED FOR SHORTNESS OF BREATH, LOWER EXTREMITY EDEMA, CHF, AND PNEUMONIA. CHEST XRAY REVEALED A LEFT SIDED PLEURAL EFFUSION PRESENT WITH LEFT BASILAR EDEMA OR INFILTRATE. SHE HAS A NEW DIAGNOSIS OF STAGE 3 LUNG CANCER AND HAS A HISTORY OF COPD. SHE HAS BEEN UTILIZING THE BIPAP THROUGHOUT THE NIGHT. TODAY, SHE IS LYING IN BED WITH EYES CLOSED ON MORNING ROUNDS. SHE AWAKENS TO VERBAL STIMULI. SHE CONTINUES WITH COMPLAINTS OF SHORTNESS OF BREATH TODAY. ON EXAMINATION, HEART IS REGULAR IN RATE AND RHYTHM. BILATERAL LUNGS ARE NOTED WITH DIMINISHED LUNG SOUNDS THROUGHOUT. ABDOMEN IS FLAT, SOFT, AND NON-TENDER WITH NORMAL BOWEL SOUNDS IN ALL QUADRANTS. THERE IS TRACE EDEMA TO LOWER EXTREMITIES. HER VITALS THIS MORNING ARE: 98.4-94-54-88%-130/80. LABS WERE OBTAINED. ABNORMAL LAB VALUES INCLUDE THE FOLLOWING: WBC 15.8, POTASSIUM 2.8, CHLORIDE 97, CARBON DIOXIDE 32.9, BUN 22, GLUCOSE 168, TOTAL PROTEIN 5.8, ALBUMIN 2.4. SPUTUM CULTURE IS PENDING. A CHEST XRAY WAS OBTAINED AND REVEALED NO SIGNIFICANT CHANGE FROM YESTERDAY. AN ABG WAS OBTAINED AND REVEALED: PH 7.540, PC02 47.0, P02 49.0, HC03 40.2, 02 SATURATION 89.0, BASE EXCESS 15.7. SHE IS CURRENTLY RECEIVING RESPIRATORY TREATMENTS, LEVAQUIN 500MG IV DAILY, SOLU-MEDROL 80MG IV Q6H AJ, DIFLUCAN 200MG IV DAILY, MAGIC MOUTHWASH, VALIUM TID, AND NORMAL SALINE AT 50ML/HR. WE WILL CONTINUE WITH CURRENT PLAN OF CARE TODAY. OTHERWISE, WE WILL FOLLOW UP WITH AM LABS, CHEST XRAY, AND ABG AND CONTINUE TO MONITOR. - Past Medical Family Social History Past Med/Fam/Surg Hx: No changes since H&P Allergies: Allergies Penicillins Allergy (Verified 04/10/19 11:35) - Review of Systems ROS: No change since H&P - Vital Signs and I&O's Vital Signs: Temperature 98.5 F Pulse Rate [Right Brachial] 23 Pulse Rate 93 Respiratory Rate 32 Blood Pressure [Right Arm] 121/80 Blood Pressure 135/83 O2 Sat by Pulse Oximetry 86 Intake and Output: Intake & Output 11/03/04/13/19 04/14/19 04/15/19 11:59 11:59 11:59 11:59 Intake Total 2027 / 2027 2268 / 2268 1187 / 1187 Output Total 4400 / 4400 3300 / 3300 400 / 400 Balance -2372 / -2372 -1032 / -1032 787 / 787 - Physical Exam Oriented: Normal Eyes: Normal Ear: Normal Nose: Normal Throat: Normal Respiratory: Generalized, Diminished Cardiovascular: Normal, Edema ( BILATERAL LOWER EXTREMITY TRACE EDEMA) : Normal Auscultation: Bowel Sounds: Normal Palpation: Normal Tenderness: Normal Skin: Decreased Turgur Musculoskeletal: Normal Psychiatric: Anxiety Affect: Anxious Speech Pattern: Clear, Appropriate - Laboratory and Diagnostics Result Diagrams: 04/14/19 04:07 04/14/19 04:07 Labs: 04/13/19 09:33 Sputum - Expectorated Sputum Sputum Culture - Preliminary 04/13/19 09:33 Sputum - Expectorated Sputum - Final Laboratory WBC 15.8 X10^3/uL (3.6-10.0) H 04/14/19 04:07 RBC 4.60 X10^6/uL (3.5-5.4) 04/14/19 04:07 Hgb 14.1 g/dL (12.0-16.0) 04/14/19 04:07 Hct 41.9 % (36.0-47.0) 04/14/19 04:07 MCV 91.0 fL (80.0-100.0) 04/14/19 04:07 MCH 30.6 pg (27.0-34.0) 04/14/19 04:07 MCHC 33.6 g/dL (33.0-35.0) 04/14/19 04:07 RDW 15.0 % (11.6-16.5) 04/14/19 04:07 Plt Count 349 X10^3/uL (150.0-450.0) 04/14/19 04:07 Plt Count Comment Adequate (ADEQUATE) 04/13/19 04:12 MPV 6.6 fL (7.4-11.0) L 04/14/19 04:07 Neut % (Auto) 91.4 % (42.0-75.0) H 04/14/19 04:07 Lymph % (Auto) 1.3 % (21.0-51.0) L 04/14/19 04:07 [place] % (Auto) 7.3 % (0.0-13.0) 04/14/19 04:07 Eos % (Auto) 0.0 % (0.9-2.9) L 04/14/19 04:07 Baso % (Auto) 0 % (0.2-1.0) L 04/14/19 04:07 Neut # (Auto) 14.4 x10^3/uL (2.2-4.8) H 04/14/19 04:07 Lymph # (Auto) 0.2 X10^3/uL (1.3-2.9) L 04/14/19 04:07 [place] # (Auto) 1.1 x10^3/uL (0.3-0.8) H 04/14/19 04:07 Eos # (Auto) 0.0 x10^3/uL (0.0-0.2) 04/14/19 04:07 Baso # (Auto) 0.0 X10^3/uL (0.0-0.1) 04/14/19 04:07 Absolute Nucleated RBC 0.0 /100WBC 04/14/19 04:07 Total Counted 100 04/13/19 04:12 Neutrophils % (Manual) 94 % (39-76) H 04/13/19 04:12 Lymphocytes % (Manual) 3 % (13-43) L 04/13/19 04:12 Monocytes % (Manual) 3 % (4-9) L 04/13/19 04:12 Plt Morphology Comment Normal (NORMAL) 04/13/19 04:12 RBC Morphology Normal (NORMAL) 04/13/19 04:12 Sample Site Rr 04/14/19 11:00 ABG pH 7.540 (7.35-7.45) H 04/14/19 11:00 ABG pCO2 47.0 mmHg (35.0-45.0) H 04/14/19 11:00 ABG pO2 49.0 mmHg (80.0-100.0) L* 04/14/19 11:00 ABG HCO3 40.2 mmol/L (22-26) H* 04/14/19 11:00 ABG O2 Saturation 89.0 % (90-100) L 04/14/19 11:00 ABG Base Excess 15.7 mmol/L (-2.0-2.0) H 04/14/19 11:00 Brodie Test Pos 04/14/19 11:00 A-a Gradient 177.0 mmHg 04/14/19 11:00 FiO2 40.0 04/14/19 11:00 Blood Gas Comments Pt [email or web address] 04/14/19 11:00 Sodium 138 mmol/L (136-145) 04/14/19 04:07 Corrected Sodium 140 mmol/L (136-145) 04/14/19 04:07 Potassium 2.8 mmol/L (3.5-5.1) L* 04/14/19 04:07 Chloride 97 mmol/L (98-107) L 04/14/19 04:07 Carbon Dioxide 32.9 mmol/L (21-32) H 04/14/19 04:07 BUN 22 mg/dL (7-18) H 04/14/19 04:07 Creatinine 0.72 mg/dL (0.55-1.02) 04/14/19 04:07 Est GFR (MDRD) Af Amer > 60 (>60) 04/14/19 04:07 Est GFR (MDRD) Non-Af > 60 (>60) 04/14/19 04:07 Glucose 168 mg/dL (65-99) H 04/14/19 04:07 Calcium 8.5 mg/dL (8.5-10.1) 04/14/19 04:07 Corrected Calcium 9.8 mg/dL (8.5-10.1) 04/14/19 04:07 Magnesium 1.8 mg/dL (1.7-2.9) 04/14/19 04:07 Total Bilirubin 0.40 mg/dL (0.2-1.0) 04/14/19 04:07 AST 17 Units/L (15-37) 04/14/19 04:07 ALT 28 Units/L (12-78) 04/14/19 04:07 Alkaline Phosphatase 76 Units/L (46-116) 04/14/19 04:07 B-Natriuretic Peptide 85.8 pg/mL (0-79) H 04/10/19 09:55 Total Protein 5.8 g/dL (6.4-8.2) L 04/14/19 04:07 Albumin 2.4 g/dL (3.4-5.0) L 04/14/19 04:07 Globulin 3.4 g/dL (2.5-4.5) 04/14/19 04:07 Albumin/Globulin Ratio 0.7 Ratio (1.1-2.1) L 04/14/19 04:07 Specimen Type Catherized urine 04/10/19 16:00 Urine Color Yellow (YELLOW) 04/10/19 16:00 Urine Appearance Clear (CLEAR) 04/10/19 16:00 Urine pH 7.0 (5.0 - 8.0) 04/10/19 16:00 Ur Specific [place] 1.015 (1.000-1.030) 04/10/19 16:00 Urine Protein 1+ (NEGATIVE) 04/10/19 16:00 Urine Glucose (UA) Negative (NEGATIVE) 04/10/19 16:00 Urine Ketones Negative (NEGATIVE) 04/10/19 16:00 Urine Occult Blood 1+ (NEGATIVE) 04/10/19 16:00 Urine Nitrite Negative (NEGATIVE) 04/10/19 16:00 Urine Bilirubin Negative (NEGATIVE) 04/10/19 16:00 Urine Urobilinogen Normal (NORMAL) 04/10/19 16:00 Ur Leukocyte Esterase Negative (NEGATIVE) 04/10/19 16:00 Urine RBC 5-10 /HPF (0-3) A 04/10/19 16:00 Urine WBC None seen /HPF (0-5) 04/10/19 16:00 Ur Squamous Epith Cells Negative /HPF (NEGATIVE) 04/10/19 16:00 Urine Bacteria Negative /HPF (NEGATIVE) 04/10/19 16:00 Ur Culture Indicated? No/not indicated 04/10/19 16:00 - Plan (1) Pneumonia Status: Acute Qualifiers: Pneumonia type: due to unspecified organism Laterality: bilateral Lung location: unspecified part of lung Qualified Code(s): J18.9 - Pneumonia, unspecified organism Plan: LEVAQUIN IV DAILY, RESPIRATORY TX, SUPPLEMENTAL OXYGEN, BIPAP, CONTINUE TO MONITOR (2) CHF (congestive heart failure) Status: Acute Qualifiers: Heart failure type: unspecified Heart failure chronicity: acute Qualified Code(s): I50.9 - Heart failure, unspecified Plan: IV LASIX, RESPIRATORY TX, BIPAP, CONTINUE TO MONITOR (3) Respiratory failure with hypoxia Status: Acute Qualifiers: Chronicity: acute Qualified Code(s): J96.01 - Acute respiratory failure with hypoxia (4) Lung cancer Status: Acute Qualifiers: Laterality: unspecified laterality Lung location: unspecified part of lung Qualified Code(s): C34.90 - Malignant neoplasm of unspecified part of unspecified bronchus or lung (5) Hyponatremia Status: Acute (6) COPD (chronic obstructive pulmonary disease) Status: Chronic Qualifiers: COPD type: unspecified COPD Qualified Code(s): J44.9 - Chronic obstructive pulmonary disease, unspecified
[2019-04-14] MEDS: PEPCID TAB 20 MG PO SCH (20:51)
[2019-04-14] MEDS: ZANAFLEX PO SCH (21:01)
[2019-04-15] MEDS: XOPENEX 1.25 MG/3 ML NEBULE NEB SCH ×5 (05:01→21:00)
[2019-04-15 05:19] LABS: ABG BASE EXCESS 19.2 mmol/L (-2.0-2.0)
[2019-04-15] MEDS: LASIX IVP SCH ×3 (05:20→21:48)
[2019-04-15] MEDS: VALIUM PO SCH ×3 (05:21→21:47)
[2019-04-15 05:22] LABS: ABG ALLEN TEST P; ABG HCO3 45.7 mmol/L (22-26)
[2019-04-15 05:24] LABS: BASOPHILS % (AUTO) 0.1 % (0.2-1.0); HEMATOCRIT 43.2 % (36.0-47.0); HEMOGLOBIN 14.7 g/dL (12.0-16.0); LYMPHOCYTES # (AUTO) 0.3 X10^3/uL (1.3-2.9); LYMPHOCYTES % (AUTO) 2.1 % (21.0-51.0); MEAN CORPUSCULAR VOLUME 91.3 fL (80.0-100.0); MEAN PLATELET VOLUME 6.9 fL (7.4-11.0); MONOCYTES # (AUTO) 1.4 x10^3/uL (0.3-0.8); MONOCYTES % (AUTO) 9.6 % (0.0-13.0); NEUTROPHILS # (AUTO) 13.1 x10^3/uL (2.2-4.8); NEUTROPHILS % (AUTO) 88.2 % (42.0-75.0); PLATELET COUNT 333 X10^3/uL (150.0-450.0); RED BLOOD COUNT 4.74 X10^6/uL (3.5-5.4); RED CELL DISTRIBUTION WIDTH 15.3 % (11.6-16.5); WHITE BLOOD COUNT 14.8 X10^3/uL (3.6-10.0)
[2019-04-15 05:53] LABS: ALANINE AMINOTRANSFERASE 43 Units/L (12-78); ALBUMIN 2.5 g/dL (3.4-5.0); ALKALINE PHOSPHATASE 75 Units/L (46-116); ASPARTATE AMINO TRANSFERASE 25 Units/L (15-37); BLOOD UREA NITROGEN 28 mg/dL (7-18); CALCIUM 8.8 mg/dL (8.5-10.1); CARBON DIOXIDE 37.7 mmol/L (21-32); CHLORIDE 98 mmol/L (98-107); COR NA(FOR HYPERGLY) 140 mmol/L (136-145); CREATININE 0.62 mg/dL (0.55-1.02); MAGNESIUM 2.6 mg/dL (1.7-2.9); SODIUM 140 mmol/L (136-145); eGFR NON BLACK RACES > 60 (>60)
--- NOTE | 2019-04-15 06:58 | RAD ---
HISTORY: 69-year-old female with shortness of breath and COPD. History of lung cancer. Study: Frontal view of the chest. Comparison: Chest radiograph 04/14/2019 Findings: The trachea is midline. The cardiac silhouette is stably enlarged with chronic prominence interstitium and perihilar lung markings. Overall stable bilateral effusions with slight improvement in pattern of aeration right lung base. The lungs are clear without focal consolidation, effusion or pneumothorax. Soft tissues are unremarkable. Osseous structures are unremarkable. IMPRESSION: 1. Slight improvement aeration right lung base with no other interval change. Reported By:
[2019-04-15] MEDS: DIFLUCAN 200 MG IV PREMIX* 200 MG/100 ML BAG IV SCH (08:18)
[2019-04-15] MEDS: LOVENOX INJ 40 MG SYR SC SCH (08:19)
[2019-04-15] MEDS: LEVAQUIN PREMIX IV 500 MG 500 MG/100 ML BAG IV SCH (08:19)
[2019-04-15] MEDS: PROTONIX INJ 40 MG VIAL IVP SCH ×2 (08:20→21:46)
[2019-04-15] MEDS: DECADRON JET NEB (RESP USE) NEB SCH ×4 (08:56→21:00)
[2019-04-15] MEDS: Atrovent NEB TX 0.02% NEB SCH ×4 (08:56→21:00)
[2019-04-15] MEDS: MUCOMYST 20% 200 MG/ML NEB SCH ×4 (08:57→21:00)
[2019-04-15] MEDS: EFFEXOR XR 37.5 MG CAP PO SCH (09:14)
[2019-04-15] MEDS: SYNTHROID 88 mcg TAB PO SCH (09:14)
[2019-04-15] MEDS: MILK OF MAGNESIA PO SCH ×2 (09:29→21:48)
[2019-04-15] MEDS: SOLU-Medrol 40 MG VIAL IVP SCH ×3 (10:37→21:48)
--- NOTE | 2019-04-15 11:29 | VAS ---
HISTORY: Left arm edema, recent IV with swelling during the night. Study: Ultrasound of the left upper extremity veins Comparison: No priors Technique: Grayscale, color and duplex Doppler ultrasound of the veins of the left upper extremity is provided. Within veins of minimal to augmentation and compression, these maneuvers were performed. Findings: There is good venous flow without evidence of thrombosis. There is subcutaneous edema present involving the left brachial region. Small normal appearing lymph nodes are present in the left neck region. IMPRESSION: No evidence of venous thrombosis. Reported By:
[2019-04-15] MEDS: NS 1000 ML 1,000 ML IV SCH ×2 (18:54→23:00)
--- NOTE | 2019-04-15 20:23 | PCM.PROG ---
Progress Note - Progress Note for Day of Date of Exam: 04/15/19 - Subjective Subjective: IS BEING TREATED FOR SHORTNESS OF BREATH, LOWER EXTREMITY EDEMA, CHF, AND PNEUMONIA. SHE HAS A NEW DIAGNOSIS OF STAGE 3 LUNG CANCER AND HAS A HISTORY OF COPD. SHE HAS BEEN UTILIZING THE BIPAP THROUGHOUT THE NIGHT. TODAY, SHE IS LYING IN BED WITH EYES CLOSED ON MORNING ROUNDS. SHE AWAKENS TO VERBAL STIMULI. SHE CONTINUES WITH COMPLAINTS OF SHORTNESS OF BREATH TODAY. SHE IS NOTED WITH LABORED BREATHING. SHE ALSO REPORTS LEFT ARM SWELLING. ON EXAMINATION, HEART IS REGULAR IN RATE AND RHYTHM. BILATERAL LUNGS ARE NOTED WITH DIMINISHED LUNG SOUNDS THROUGHOUT. ABDOMEN IS FLAT, SOFT, AND NON-TENDER WITH NORMAL BOWEL SOUNDS IN ALL QUADRANTS. THERE IS TRACE EDEMA TO LOWER EXTREMITIES. HER VITALS THIS MORNING ARE: 98.9-91-13-96%-131/81. LABS WERE OBTAINED. ABNORMAL LAB VALUES INCLUDE THE FOLLOWING: WBC 14.8, CHLORIDE 37.7, CARBON DIOXIDE 28, GLUCOSE 112, TOTAL PROTEIN 6.0, ALBUMIN 2.5. SPUTUM CULTURE IS PENDING. A CHEST XRAY WAS OBTAINED AND REVEALED: Slight improvement aeration right lung base with no other interval change. AN ABG WAS OBTAINED AND REVEALED: PH 7.490, PC02 60.0, P02 67.0, HC03 45.7, 02 SATURATION 94.0, BASE EXCESS 19.2. SHE IS CURRENTLY RECEIVING RESPIRATORY TREATMENTS, LEVAQUIN 500MG IV DAILY, SOLU-MEDROL 80MG IV Q8H AJ, DIFLUCAN 200MG IV DAILY, MAGIC MOUTHWASH, VALIUM TID, AND NORMAL SALINE AT 50ML/HR. WE WILL CONTINUE WITH CURRENT PLAN OF CARE TODAY AND OBTAIN A LEFT ARM VENOUS DOPPLER. OTHERWISE, WE WILL FOLLOW UP WITH AM LABS, CHEST XRAY, AND ABG AND CONTINUE TO MONITOR. - Past Medical Family Social History Past Med/Fam/Surg Hx: No changes since H&P Allergies: Allergies Penicillins Allergy (Verified 04/10/19 11:35) - Review of Systems ROS: No change since H&P - Vital Signs and I&O's Vital Signs: Temperature 99.0 F Pulse Rate [Right Brachial] 23 Pulse Rate 91 Respiratory Rate 12 Blood Pressure [Right Arm] 121/80 Blood Pressure 125/81 O2 Sat by Pulse Oximetry 96 Intake and Output: Intake & Output 1104/14/19 04/15/19 04/16/19 11:59 11:59 11:59 11:59 Intake Total 2027 2268 / 2268 2737 / 2737 620 / 620 Output Total 4400 / 4400 3300 / 3300 1600 / 1600 1200 / 1200 Balance -2372 / -2372 -1032 / -1032 1137 / 1137 -580 / -580 - Physical Exam Oriented: Normal Eyes: Normal Ear: Normal Nose: Normal Throat: Normal Respiratory: Generalized, Diminished Cardiovascular: Normal, Edema ( BILATERAL LOWER EXTREMITY TRACE EDEMA) : Normal Auscultation: Bowel Sounds: Normal Palpation: Normal Tenderness: Normal Skin: Decreased Turgur Musculoskeletal: Normal Psychiatric: Anxiety Affect: Anxious Speech Pattern: Clear, Appropriate - Laboratory and Diagnostics Result Diagrams: 04/15/19 04:03 04/15/19 04:03 Labs: 04/13/19 09:33 Sputum - Expectorated Sputum Sputum Culture - Final Klebsiella Pneumoniae 04/13/19 09:33 Sputum - Expectorated Sputum - Final Laboratory WBC 14.8 X10^3/uL (3.6-10.0) H 04/15/19 04:03 RBC 4.74 X10^6/uL (3.5-5.4) 04/15/19 04:03 Hgb 14.7 g/dL (12.0-16.0) 04/15/19 04:03 Hct 43.2 % (36.0-47.0) 04/15/19 04:03 MCV 91.3 fL (80.0-100.0) 04/15/19 04:03 MCH 31.0 pg (27.0-34.0) 04/15/19 04:03 MCHC 34.0 g/dL (33.0-35.0) 04/15/19 04:03 RDW 15.3 % (11.6-16.5) 04/15/19 04:03 Plt Count 333 X10^3/uL (150.0-450.0) 04/15/19 04:03 Plt Count Comment Adequate (ADEQUATE) 04/13/19 04:12 MPV 6.9 fL (7.4-11.0) L 04/15/19 04:03 Neut % (Auto) 88.2 % (42.0-75.0) H 04/15/19 04:03 Lymph % (Auto) 2.1 % (21.0-51.0) L 04/15/19 04:03 [place] % (Auto) 9.6 % (0.0-13.0) 04/15/19 04:03 Eos % (Auto) 0.0 % (0.9-2.9) L 04/15/19 04:03 Baso % (Auto) 0.1 % (0.2-1.0) L 04/15/19 04:03 Neut # (Auto) 13.1 x10^3/uL (2.2-4.8) H 04/15/19 04:03 Lymph # (Auto) 0.3 X10^3/uL (1.3-2.9) L 04/15/19 04:03 [place] # (Auto) 1.4 x10^3/uL (0.3-0.8) H 04/15/19 04:03 Eos # (Auto) 0.0 x10^3/uL (0.0-0.2) 04/15/19 04:03 Baso # (Auto) 0.0 X10^3/uL (0.0-0.1) 04/15/19 04:03 Absolute Nucleated RBC 0.0 /100WBC 04/15/19 04:03 Total Counted 100 04/13/19 04:12 Neutrophils % (Manual) 94 % (39-76) H 04/13/19 04:12 Lymphocytes % (Manual) 3 % (13-43) L 04/13/19 04:12 Monocytes % (Manual) 3 % (4-9) L 04/13/19 04:12 Plt Morphology Comment Normal (NORMAL) 04/13/19 04:12 RBC Morphology Normal (NORMAL) 04/13/19 04:12 Sample Site Rr 04/15/19 05:05 ABG pH 7.490 (7.35-7.45) H 04/15/19 05:05 ABG pCO2 60.0 mmHg (35.0-45.0) H* 04/15/19 05:05 ABG pO2 67.0 mmHg (80.0-100.0) L 04/15/19 05:05 ABG HCO3 45.7 mmol/L (22-26) H* 04/15/19 05:05 ABG O2 Saturation 94.0 % (90-100) 04/15/19 05:05 ABG Base Excess 19.2 mmol/L (-2.0-2.0) H 04/15/19 05:05 Brodie Test P 04/15/19 05:05 A-a Gradient 428.0 mmHg 04/15/19 05:05 FiO2 80.0 04/15/19 05:05 Blood Gas Comments Tolerated well lh 04/15/19 05:05 Sodium 140 mmol/L (136-145) 04/15/19 04:03 Corrected Sodium 140 mmol/L (136-145) 04/15/19 04:03 Potassium 4.2 mmol/L (3.5-5.1) 04/15/19 04:03 Chloride 98 mmol/L (98-107) 04/15/19 04:03 Carbon Dioxide 37.7 mmol/L (21-32) H 04/15/19 04:03 BUN 28 mg/dL (7-18) H 04/15/19 04:03 Creatinine 0.62 mg/dL (0.55-1.02) 04/15/19 04:03 Est GFR (MDRD) Af Amer > 60 (>60) 04/15/19 04:03 Est GFR (MDRD) Non-Af > 60 (>60) 04/15/19 04:03 Glucose 112 mg/dL (65-99) H 04/15/19 04:03 Calcium 8.8 mg/dL (8.5-10.1) 04/15/19 04:03 Corrected Calcium 10.0 mg/dL (8.5-10.1) 04/15/19 04:03 Magnesium 2.6 mg/dL (1.7-2.9) 04/15/19 04:03 Total Bilirubin 0.50 mg/dL (0.2-1.0) 04/15/19 04:03 AST 25 Units/L (15-37) 04/15/19 04:03 ALT 43 Units/L (12-78) 04/15/19 04:03 Alkaline Phosphatase 75 Units/L (46-116) 04/15/19 04:03 B-Natriuretic Peptide 85.8 pg/mL (0-79) H 04/10/19 09:55 Total Protein 6.0 g/dL (6.4-8.2) L 04/15/19 04:03 Albumin 2.5 g/dL (3.4-5.0) L 04/15/19 04:03 Globulin 3.5 g/dL (2.5-4.5) 04/15/19 04:03 Albumin/Globulin Ratio 0.7 Ratio (1.1-2.1) L 04/15/19 04:03 Specimen Type Catherized urine 04/10/19 16:00 Urine Color Yellow (YELLOW) 04/10/19 16:00 Urine Appearance Clear (CLEAR) 04/10/19 16:00 Urine pH 7.0 (5.0 - 8.0) 04/10/19 16:00 Ur Specific [place] 1.015 (1.000-1.030) 04/10/19 16:00 Urine Protein 1+ (NEGATIVE) 04/10/19 16:00 Urine Glucose (UA) Negative (NEGATIVE) 04/10/19 16:00 Urine Ketones Negative (NEGATIVE) 04/10/19 16:00 Urine Occult Blood 1+ (NEGATIVE) 04/10/19 16:00 Urine Nitrite Negative (NEGATIVE) 04/10/19 16:00 Urine Bilirubin Negative (NEGATIVE) 04/10/19 16:00 Urine Urobilinogen Normal (NORMAL) 04/10/19 16:00 Ur Leukocyte Esterase Negative (NEGATIVE) 04/10/19 16:00 Urine RBC 5-10 /HPF (0-3) A 04/10/19 16:00 Urine WBC None seen /HPF (0-5) 04/10/19 16:00 Ur Squamous Epith Cells Negative /HPF (NEGATIVE) 04/10/19 16:00 Urine Bacteria Negative /HPF (NEGATIVE) 04/10/19 16:00 Ur Culture Indicated? No/not indicated 04/10/19 16:00 - Plan (1) Pneumonia Status: Acute Qualifiers: Pneumonia type: due to unspecified organism Laterality: bilateral Lung location: unspecified part of lung Qualified Code(s): J18.9 - Pneumonia, unspecified organism Plan: LEVAQUIN IV DAILY, RESPIRATORY TX, SUPPLEMENTAL OXYGEN, BIPAP, CONTINUE TO MONITOR (2) CHF (congestive heart failure) Status: Chronic Qualifiers: Heart failure type: unspecified Heart failure chronicity: acute Qualified Code(s): I50.9 - Heart failure, unspecified Plan: IV LASIX, RESPIRATORY TX, BIPAP, CONTINUE TO MONITOR (3) Respiratory failure with hypoxia Status: Acute Qualifiers: Chronicity: acute Qualified Code(s): J96.01 - Acute respiratory failure with hypoxia (4) Lung cancer Status: Chronic Qualifiers: Laterality: unspecified laterality Lung location: unspecified part of lung Qualified Code(s): C34.90 - Malignant neoplasm of unspecified part of unspecified bronchus or lung (5) Hyponatremia Status: Acute (6) COPD (chronic obstructive pulmonary disease) Status: Chronic Qualifiers: COPD type: unspecified COPD Qualified Code(s): J44.9 - Chronic obstructive pulmonary disease, unspecified
[2019-04-15] MEDS: PEPCID TAB 20 MG PO SCH (21:47)
[2019-04-15] MEDS: ZANAFLEX PO SCH (21:48)
[2019-04-15] MEDS: COLACE CAP 100 MG PO SCH (21:48)
[2019-04-16] MEDS: XOPENEX 1.25 MG/3 ML NEBULE NEB SCH ×3 (05:20→20:46)
[2019-04-16] MEDS: LASIX IVP SCH ×3 (06:00→22:00)
[2019-04-16] MEDS: SOLU-Medrol 40 MG VIAL IVP SCH ×3 (06:00→22:00)
[2019-04-16] MEDS: VALIUM PO SCH ×3 (06:01→22:00)
[2019-04-16 06:23] LABS: ALANINE AMINOTRANSFERASE 38 Units/L (12-78); ALBUMIN 2.3 g/dL (3.4-5.0); ALKALINE PHOSPHATASE 65 Units/L (46-116); ASPARTATE AMINO TRANSFERASE 18 Units/L (15-37); BLOOD UREA NITROGEN 33 mg/dL (7-18); CALCIUM 8.5 mg/dL (8.5-10.1); CHLORIDE 101 mmol/L (98-107); COR CA(FOR HYPOALB) 9.9 mg/dL (8.5-10.1); COR NA(FOR HYPERGLY) 143 mmol/L (136-145); CREATININE 0.52 mg/dL (0.55-1.02); SODIUM 142 mmol/L (136-145); TOTAL PROTEIN 5.4 g/dL (6.4-8.2); eGFR NON BLACK RACES > 60 (>60)
[2019-04-16 06:31] LABS: BASOPHILS % (AUTO) 0.2 % (0.2-1.0); HEMATOCRIT 40.9 % (36.0-47.0); HEMOGLOBIN 13.8 g/dL (12.0-16.0); LYMPHOCYTES # (AUTO) 0.3 X10^3/uL (1.3-2.9); LYMPHOCYTES % (AUTO) 2.2 % (21.0-51.0); MEAN CORPUSCULAR HGB CONC 33.8 g/dL (33.0-35.0); MEAN CORPUSCULAR VOLUME 91.8 fL (80.0-100.0); MEAN PLATELET VOLUME 6.8 fL (7.4-11.0); MONOCYTES # (AUTO) 0.9 x10^3/uL (0.3-0.8); MONOCYTES % (AUTO) 6.8 % (0.0-13.0); NEUTROPHILS # (AUTO) 12.5 x10^3/uL (2.2-4.8); NEUTROPHILS % (AUTO) 90.8 % (42.0-75.0); PLATELET COUNT 277 X10^3/uL (150.0-450.0); RED BLOOD COUNT 4.45 X10^6/uL (3.5-5.4); RED CELL DISTRIBUTION WIDTH 15.3 % (11.6-16.5); WHITE BLOOD COUNT 13.8 X10^3/uL (3.6-10.0)
[2019-04-16 06:35] LABS: CARBON DIOXIDE 32.4 mmol/L (21-32)
--- NOTE | 2019-04-16 06:41 | RAD ---
HISTORY: 69-year-old female with shortness of breath. History of COPD and lung cancer. Study: Frontal view of the chest. Comparison: Chest radiograph 04/15/2019 Findings: The trachea is midline. The cardiac silhouette is stably enlarged with improved pattern of aeration with persistent diffuse reticulonodular interstitial prominence and bilateral effusions. No pneumothorax. Soft tissues are unremarkable. Osseous structures are unremarkable. IMPRESSION: 1. Improving pattern of aeration. Reported By:
[2019-04-16 06:58] LABS: PLATELET MORPHOLOGY COMMENT NORMAL (NORMAL)
[2019-04-16] MEDS: LEVAQUIN PREMIX IV 500 MG 500 MG/100 ML BAG IV SCH (08:26)
[2019-04-16] MEDS: DIFLUCAN 200 MG IV PREMIX* 200 MG/100 ML BAG IV SCH (08:26)
[2019-04-16] MEDS: LOVENOX INJ 40 MG SYR SC SCH (08:27)
[2019-04-16] MEDS: PROTONIX INJ 40 MG VIAL IVP SCH ×2 (08:28→20:59)
[2019-04-16] MEDS: EFFEXOR XR 37.5 MG CAP PO SCH (08:28)
[2019-04-16] MEDS: SYNTHROID 88 mcg TAB PO SCH (08:28)
[2019-04-16] MEDS: Atrovent NEB TX 0.02% NEB SCH ×4 (08:36→20:46)
[2019-04-16] MEDS: MUCOMYST 20% 200 MG/ML NEB SCH (08:36)
[2019-04-16] MEDS: DECADRON JET NEB (RESP USE) NEB SCH ×4 (08:36→20:47)
[2019-04-16] MEDS: MILK OF MAGNESIA PO SCH ×2 (09:50→20:59)
[2019-04-16] MEDS: NS 1000 ML 1,000 ML IV SCH ×2 (13:22→15:39)
[2019-04-16] MEDS: MEGACE PO SCH ×2 (13:29→20:59)
[2019-04-16] MEDS ORDERED: STERILE WATER IRRIGATION IR ONE (15:26)
[2019-04-16] MEDS: PEPCID TAB 20 MG PO SCH (20:59)
[2019-04-16] MEDS: COLACE CAP 100 MG PO SCH (20:59)
[2019-04-16] MEDS: ZANAFLEX PO SCH (21:00)
[2019-04-17] MEDS: NS 1000 ML 1,000 ML IV SCH (01:00)
[2019-04-17 04:58] LABS: BASOPHILS % (AUTO) 0.1 % (0.2-1.0); HEMATOCRIT 42.4 % (36.0-47.0); LYMPHOCYTES # (AUTO) 0.2 X10^3/uL (1.3-2.9); LYMPHOCYTES % (AUTO) 1.2 % (21.0-51.0); MEAN CORPUSCULAR HEMOGLOBIN 30.6 pg (27.0-34.0); MEAN CORPUSCULAR HGB CONC 33.1 g/dL (33.0-35.0); MEAN CORPUSCULAR VOLUME 92.5 fL (80.0-100.0); MONOCYTES # (AUTO) 0.8 x10^3/uL (0.3-0.8); MONOCYTES % (AUTO) 5.4 % (0.0-13.0); NEUTROPHILS # (AUTO) 14.3 x10^3/uL (2.2-4.8); NEUTROPHILS % (AUTO) 93.3 % (42.0-75.0); PLATELET COUNT 278 X10^3/uL (150.0-450.0); RED BLOOD COUNT 4.58 X10^6/uL (3.5-5.4); RED CELL DISTRIBUTION WIDTH 15.1 % (11.6-16.5); WHITE BLOOD COUNT 15.4 X10^3/uL (3.6-10.0)
[2019-04-17 05:01] LABS: ALANINE AMINOTRANSFERASE 104 Units/L (12-78); ALBUMIN 2.4 g/dL (3.4-5.0); ALKALINE PHOSPHATASE 88 Units/L (46-116); ASPARTATE AMINO TRANSFERASE 42 Units/L (15-37); BLOOD UREA NITROGEN 35 mg/dL (7-18); CALCIUM 8.6 mg/dL (8.5-10.1); CHLORIDE 101 mmol/L (98-107); COR CA(FOR HYPOALB) 9.9 mg/dL (8.5-10.1); COR NA(FOR HYPERGLY) 145 mmol/L (136-145); CREATININE 0.56 mg/dL (0.55-1.02); SODIUM 144 mmol/L (136-145); TOTAL PROTEIN 5.5 g/dL (6.4-8.2); eGFR NON BLACK RACES > 60 (>60)
[2019-04-17 05:15] LABS: CARBON DIOXIDE 43.5 mmol/L (21-32)
[2019-04-17 05:39] LABS: ABG BASE EXCESS 25.2 mmol/L (-2.0-2.0)
[2019-04-17 05:45] LABS: ABG HCO3 52.3 mmol/L (22-26)
[2019-04-17] MEDS: XOPENEX 1.25 MG/3 ML NEBULE NEB SCH ×3 (05:45→21:08)
[2019-04-17] MEDS: LASIX IVP SCH ×3 (05:51→21:43)
[2019-04-17] MEDS: SOLU-Medrol 40 MG VIAL IVP SCH ×3 (05:52→21:43)
[2019-04-17] MEDS: VALIUM PO SCH ×3 (05:52→21:42)
[2019-04-17 06:13] LABS: BAND NEUTROPHILS % 3 % (0-10); PLATELET MORPHOLOGY COMMENT NORMAL (NORMAL)
--- NOTE | 2019-04-17 06:18 | RAD ---
HISTORY: Shortness of breath, lung cancer Study: Single view chest Comparison: 04/16/2019 Findings: Portable upright view demonstrates layering bilateral pleural effusions and increased interstitial markings throughout the lungs that are improved. Cardiac and mediastinal contours are stable. No pneumothorax identified. The soft tissues are intact IMPRESSION: 1. Improved aeration of the lungs with persistent small pleural effusions and interstitial edema. Reported By:
[2019-04-17] MEDS: Atrovent NEB TX 0.02% NEB SCH ×5 (08:50→21:08)
[2019-04-17] MEDS: DECADRON JET NEB (RESP USE) NEB SCH ×3 (08:50→12:00)
[2019-04-17] MEDS: DIFLUCAN 200 MG IV PREMIX* 200 MG/100 ML BAG IV SCH (09:03)
[2019-04-17] MEDS: MEGACE PO SCH ×2 (09:04→21:42)
[2019-04-17] MEDS: EFFEXOR XR 37.5 MG CAP PO SCH (09:04)
[2019-04-17] MEDS: SYNTHROID 88 mcg TAB PO SCH (09:04)
[2019-04-17] MEDS: LEVAQUIN PREMIX IV 500 MG 500 MG/100 ML BAG IV SCH (09:04)
[2019-04-17] MEDS: MILK OF MAGNESIA PO SCH ×2 (09:04→21:54)
[2019-04-17] MEDS: PROTONIX INJ 40 MG VIAL IVP SCH ×2 (09:04→21:41)
[2019-04-17] MEDS: LOVENOX INJ 40 MG SYR SC SCH (09:04)
[2019-04-17] MEDS: PROCALAMINE 3 % 1,000 ML IV SCH (15:03)
--- NOTE | 2019-04-17 15:35 | PCM.PROG ---
Progress Note - Progress Note for Day of Date of Exam: 04/17/19 - Subjective Subjective: pt was seen for port placement . - Past Medical Family Social History Past Med/Fam/Surg Hx: No changes since H&P Allergies: Allergies Penicillins Allergy (Verified 04/10/19 11:35) - Review of Systems ROS: No change since H&P - Vital Signs and I&O's Vital Signs: Temperature 98.8 F Pulse Rate [Right Brachial] 23 Pulse Rate 103 Respiratory Rate 32 Blood Pressure [Right Arm] 121/80 Blood Pressure 152/84 O2 Sat by Pulse Oximetry 91 Intake and Output: Intake & Output 04/14/19 04/15/19 04/16/19 04/17/19 23:59 23:59 23:59 23:59 Intake Total 2737 / 2737 1790 / 1790 1717 / 1717 436 / 436 Output Total 2200 / 2200 1900 / 1900 3150 / 3150 1200 / 1200 Balance 537 / 537 -110 / -110 -1433 / -1433 -764 / -764 - Physical Exam Oriented: Normal Eyes: Normal Ear: Normal Nose: Normal Throat: Normal Respiratory: Generalized, Diminished Cardiovascular: Normal, Edema ( BILATERAL LOWER EXTREMITY TRACE EDEMA) : Normal Auscultation: Bowel Sounds: Normal Tenderness: Normal Skin: Decreased Turgur Musculoskeletal: Normal Psychiatric: Anxiety Affect: Anxious Speech Pattern: Clear, Appropriate - Laboratory and Diagnostics Result Diagrams: 04/17/19 04:32 04/17/19 04:32 Labs: 04/13/19 09:33 Sputum - Expectorated Sputum Sputum Culture - Final Klebsiella Pneumoniae 04/13/19 09:33 Sputum - Expectorated Sputum - Final Laboratory WBC 15.4 X10^3/uL (3.6-10.0) H 04/17/19 04:32 RBC 4.58 X10^6/uL (3.5-5.4) 04/17/19 04:32 Hgb 14.0 g/dL (12.0-16.0) 04/17/19 04:32 Hct 42.4 % (36.0-47.0) 04/17/19 04:32 MCV 92.5 fL (80.0-100.0) 04/17/19 04:32 MCH 30.6 pg (27.0-34.0) 04/17/19 04:32 MCHC 33.1 g/dL (33.0-35.0) 04/17/19 04:32 RDW 15.1 % (11.6-16.5) 04/17/19 04:32 Plt Count 278 X10^3/uL (150.0-450.0) 04/17/19 04:32 Plt Count Comment Adequate (ADEQUATE) 04/17/19 04:32 MPV 7.0 fL (7.4-11.0) L 04/17/19 04:32 Neut % (Auto) 93.3 % (42.0-75.0) H 04/17/19 04:32 Lymph % (Auto) 1.2 % (21.0-51.0) L 04/17/19 04:32 [place] % (Auto) 5.4 % (0.0-13.0) 04/17/19 04:32 Eos % (Auto) 0.0 % (0.9-2.9) L 04/17/19 04:32 Baso % (Auto) 0.1 % (0.2-1.0) L 04/17/19 04:32 Neut # (Auto) 14.3 x10^3/uL (2.2-4.8) H 04/17/19 04:32 Lymph # (Auto) 0.2 X10^3/uL (1.3-2.9) L 04/17/19 04:32 [place] # (Auto) 0.8 x10^3/uL (0.3-0.8) 04/17/19 04:32 Eos # (Auto) 0.0 x10^3/uL (0.0-0.2) 04/17/19 04:32 Baso # (Auto) 0.0 X10^3/uL (0.0-0.1) 04/17/19 04:32 Absolute Nucleated RBC 0.1 /100WBC 04/17/19 04:32 Total Counted 100 04/17/19 04:32 Neutrophils % (Manual) 92 % (39-76) H 04/17/19 04:32 Band Neutrophils % 3 % (0-10) 04/17/19 04:32 Lymphocytes % (Manual) 2 % (13-43) L 04/17/19 04:32 Monocytes % (Manual) 3 % (4-9) L 04/17/19 04:32 Plt Morphology Comment Normal (NORMAL) 04/17/19 04:32 RBC Morphology Normal (NORMAL) 04/17/19 04:32 Sample Site [facility] 04/17/19 05:36 ABG pH 7.520 (7.35-7.45) H 04/17/19 05:36 ABG pCO2 64.0 mmHg (35.0-45.0) H* 04/17/19 05:36 ABG pO2 111.0 mmHg (80.0-100.0) H 04/17/19 05:36 ABG HCO3 52.3 mmol/L (22-26) H* 04/17/19 05:36 ABG O2 Saturation 99.0 % (90-100) 04/17/19 05:36 ABG Base Excess 25.2 mmol/L (-2.0-2.0) H 04/17/19 05:36 Brodie Test Na 04/17/19 05:36 A-a Gradient 308.0 mmHg 04/17/19 05:36 FiO2 70.0 04/17/19 05:36 Blood Gas Comments Antonio abg well-mtf 04/17/19 05:36 Sodium 144 mmol/L (136-145) 04/17/19 04:32 Corrected Sodium 145 mmol/L (136-145) 04/17/19 04:32 Potassium 4.1 mmol/L (3.5-5.1) 04/17/19 04:32 Chloride 101 mmol/L (98-107) 04/17/19 04:32 Carbon Dioxide 43.5 mmol/L (21-32) H* 04/17/19 04:32 BUN 35 mg/dL (7-18) H 04/17/19 04:32 Creatinine 0.56 mg/dL (0.55-1.02) 04/17/19 04:32 Est GFR (MDRD) Af Amer > 60 (>60) 04/17/19 04:32 Est GFR (MDRD) Non-Af > 60 (>60) 04/17/19 04:32 Glucose 145 mg/dL (65-99) H 04/17/19 04:32 Calcium 8.6 mg/dL (8.5-10.1) 04/17/19 04:32 Corrected Calcium 9.9 mg/dL (8.5-10.1) 04/17/19 04:32 Magnesium 2.4 mg/dL (1.7-2.9) 04/16/19 05:50 Total Bilirubin 0.30 mg/dL (0.2-1.0) 04/17/19 04:32 AST 42 Units/L (15-37) H 04/17/19 04:32 ALT 104 Units/L (12-78) H 04/17/19 04:32 Alkaline Phosphatase 88 Units/L (46-116) 04/17/19 04:32 B-Natriuretic Peptide 85.8 pg/mL (0-79) H 04/10/19 09:55 Total Protein 5.5 g/dL (6.4-8.2) L 04/17/19 04:32 Albumin 2.4 g/dL (3.4-5.0) L 04/17/19 04:32 Globulin 3.1 g/dL (2.5-4.5) 04/17/19 04:32 Albumin/Globulin Ratio 0.8 Ratio (1.1-2.1) L 04/17/19 04:32 Prealbumin 23.6 mg/dL (18-35.7) 04/17/19 04:32 Specimen Type Catherized urine 04/10/19 16:00 Urine Color Yellow (YELLOW) 04/10/19 16:00 Urine Appearance Clear (CLEAR) 04/10/19 16:00 Urine pH 7.0 (5.0 - 8.0) 04/10/19 16:00 Ur Specific Aneta 1.015 (1.000-1.030) 04/10/19 16:00 Urine Protein 1+ (NEGATIVE) 04/10/19 16:00 Urine Glucose (UA) Negative (NEGATIVE) 04/10/19 16:00 Urine Ketones Negative (NEGATIVE) 04/10/19 16:00 Urine Occult Blood 1+ (NEGATIVE) 04/10/19 16:00 Urine Nitrite Negative (NEGATIVE) 04/10/19 16:00 Urine Bilirubin Negative (NEGATIVE) 04/10/19 16:00 Urine Urobilinogen Normal (NORMAL) 04/10/19 16:00 Ur Leukocyte Esterase Negative (NEGATIVE) 04/10/19 16:00 Urine RBC 5-10 /HPF (0-3) A 04/10/19 16:00 Urine WBC None seen /HPF (0-5) 04/10/19 16:00 Ur Squamous Epith Cells Negative /HPF (NEGATIVE) 04/10/19 16:00 Urine Bacteria Negative /HPF (NEGATIVE) 04/10/19 16:00 Ur Culture Indicated? No/not indicated 04/10/19 16:00
[2019-04-17] MEDS: PULMICORT NEB TX 0.5 MG NEB SCH ×2 (15:48→21:08)
[2019-04-17] MEDS: MORPHINE SULFATE INJ 2 MG INJ IVP PRN (17:40)
[2019-04-17] MEDS: COLACE CAP 100 MG PO SCH (21:42)
[2019-04-17] MEDS: ZANAFLEX PO SCH (21:42)
[2019-04-17] MEDS: PEPCID TAB 20 MG PO SCH (21:42)
[2019-04-18] MEDS: XOPENEX 1.25 MG/3 ML NEBULE NEB SCH ×4 (05:43→21:56)
[2019-04-18] MEDS: SOLU-Medrol 40 MG VIAL IVP SCH (05:47)
[2019-04-18] MEDS: LASIX IVP SCH ×3 (05:47→21:40)
[2019-04-18] MEDS: VALIUM PO SCH ×2 (05:48→14:16)
[2019-04-18 06:48] LABS: BASOPHILS % (AUTO) 0.1 % (0.2-1.0); HEMATOCRIT 49.1 % (36.0-47.0); HEMOGLOBIN 16.5 g/dL (12.0-16.0); LYMPHOCYTES # (AUTO) 0.3 X10^3/uL (1.3-2.9); LYMPHOCYTES % (AUTO) 1.4 % (21.0-51.0); MEAN CORPUSCULAR HEMOGLOBIN 30.9 pg (27.0-34.0); MEAN CORPUSCULAR HGB CONC 33.6 g/dL (33.0-35.0); MEAN CORPUSCULAR VOLUME 91.8 fL (80.0-100.0); MEAN PLATELET VOLUME 6.9 fL (7.4-11.0); MONOCYTES # (AUTO) 1.1 x10^3/uL (0.3-0.8); MONOCYTES % (AUTO) 5.7 % (0.0-13.0); NEUTROPHILS # (AUTO) 17.9 x10^3/uL (2.2-4.8); NEUTROPHILS % (AUTO) 92.8 % (42.0-75.0); PLATELET COUNT 304 X10^3/uL (150.0-450.0); RED BLOOD COUNT 5.35 X10^6/uL (3.5-5.4); RED CELL DISTRIBUTION WIDTH 15.4 % (11.6-16.5); WHITE BLOOD COUNT 19.3 X10^3/uL (3.6-10.0)
[2019-04-18 06:56] LABS: ALANINE AMINOTRANSFERASE 96 Units/L (12-78); ALBUMIN 3.1 g/dL (3.4-5.0); ALKALINE PHOSPHATASE 104 Units/L (46-116); ASPARTATE AMINO TRANSFERASE 22 Units/L (15-37); BLOOD UREA NITROGEN 33 mg/dL (7-18); CALCIUM 9.3 mg/dL (8.5-10.1); CHLORIDE 97 mmol/L (98-107); COR NA(FOR HYPERGLY) 144 mmol/L (136-145); CREATININE 0.58 mg/dL (0.55-1.02); SODIUM 143 mmol/L (136-145); TOTAL PROTEIN 6.9 g/dL (6.4-8.2); eGFR NON BLACK RACES > 60 (>60)
[2019-04-18 07:00] LABS: CARBON DIOXIDE 42.4 mmol/L (21-32)
[2019-04-18 07:01] LABS: PLATELET MORPHOLOGY COMMENT NORMAL (NORMAL)
[2019-04-18] MEDS: Atrovent NEB TX 0.02% NEB SCH ×4 (08:19→21:56)
[2019-04-18] MEDS: PULMICORT NEB TX 0.5 MG NEB SCH ×2 (08:19→21:56)
[2019-04-18] MEDS: LEVAQUIN PREMIX IV 500 MG 500 MG/100 ML BAG IV SCH (09:56)
[2019-04-18] MEDS: PROTONIX INJ 40 MG VIAL IVP SCH ×2 (09:56→21:40)
[2019-04-18] MEDS: MILK OF MAGNESIA PO SCH ×2 (09:56→21:39)
[2019-04-18] MEDS: LOVENOX INJ 40 MG SYR SC SCH (09:57)
[2019-04-18] MEDS: EFFEXOR XR 37.5 MG CAP PO SCH (09:57)
[2019-04-18] MEDS: MEGACE PO SCH ×2 (09:57→21:37)
[2019-04-18 09:58] LABS: ABG BASE EXCESS 25.9 mmol/L (-2.0-2.0)
[2019-04-18] MEDS: SYNTHROID 88 mcg TAB PO SCH (09:58)
[2019-04-18] MEDS: DIFLUCAN 200 MG IV PREMIX* 200 MG/100 ML BAG IV SCH (09:58)
[2019-04-18 09:59] LABS: ABG HCO3 53.1 mmol/L (22-26)
[2019-04-18] MEDS: PROCALAMINE 3 % 1,000 ML IV SCH (16:42)
[2019-04-18 17:07] LABS: ABG BASE EXCESS 25.3 mmol/L (-2.0-2.0)
[2019-04-18 17:09] LABS: ABG ALLEN TEST POS; ABG HCO3 54.2 mmol/L (22-26)
[2019-04-18 20:35] LABS: BILIRUBIN,URINE NEGATIVE (NEGATIVE); BLOOD/HEMOGLOBIN,URINE 5+ (NEGATIVE); GLUCOSE, URINE NEGATIVE (NEGATIVE); KETONES,URINE NEGATIVE (NEGATIVE); LEUKOCYTE ESTERASE ,URINE 2+ (NEGATIVE); NITRITES,URINE NEGATIVE (NEGATIVE); PROTEIN,URINE 3+ (NEGATIVE); UROBILINOGEN,URINE NORMAL (NORMAL)
[2019-04-18 20:46] LABS: APPEARANCE,URINE HAZY (CLEAR); BACTERIA,URINE NEGATIVE /HPF (NEGATIVE); COLOR,URINE BLOODY (YELLOW); RBC,URINE TNTC /HPF (0-3); SQUAMOUS EPITHELIAL CELL,UR NEGATIVE /HPF (NEGATIVE)
[2019-04-18] MEDS ORDERED: VALIUM PO SCH (21:00)
[2019-04-18] MEDS: COLACE CAP 100 MG PO SCH (21:37)
[2019-04-18] MEDS: PEPCID TAB 20 MG PO SCH (21:39)
[2019-04-18] MEDS: ZANAFLEX PO SCH (21:40)
[2019-04-18 22:00] LABS: ABG HCO3 53.5 mmol/L (22-26)
[2019-04-19] MEDS: XOPENEX 1.25 MG/3 ML NEBULE NEB SCH ×4 (05:57→20:18)
[2019-04-19] MEDS: LASIX IVP SCH ×3 (06:34→21:15)
[2019-04-19 06:38] LABS: BASOPHILS % (AUTO) 0.1 % (0.2-1.0); HEMATOCRIT 49.7 % (36.0-47.0); HEMOGLOBIN 16.8 g/dL (12.0-16.0); LYMPHOCYTES # (AUTO) 0.6 X10^3/uL (1.3-2.9); LYMPHOCYTES % (AUTO) 3.1 % (21.0-51.0); MEAN CORPUSCULAR HEMOGLOBIN 30.9 pg (27.0-34.0); MEAN CORPUSCULAR HGB CONC 33.7 g/dL (33.0-35.0); MEAN CORPUSCULAR VOLUME 91.5 fL (80.0-100.0); MONOCYTES # (AUTO) 1.5 x10^3/uL (0.3-0.8); MONOCYTES % (AUTO) 7.6 % (0.0-13.0); NEUTROPHILS # (AUTO) 17.8 x10^3/uL (2.2-4.8); NEUTROPHILS % (AUTO) 89.2 % (42.0-75.0); PLATELET COUNT 280 X10^3/uL (150.0-450.0); RED BLOOD COUNT 5.44 X10^6/uL (3.5-5.4); RED CELL DISTRIBUTION WIDTH 15.2 % (11.6-16.5); WHITE BLOOD COUNT 19.9 X10^3/uL (3.6-10.0)
[2019-04-19 06:53] LABS: ALANINE AMINOTRANSFERASE 90 Units/L (12-78); ALBUMIN 2.9 g/dL (3.4-5.0); ALKALINE PHOSPHATASE 94 Units/L (46-116); ASPARTATE AMINO TRANSFERASE 32 Units/L (15-37); BLOOD UREA NITROGEN 34 mg/dL (7-18); CARBON DIOXIDE 39.6 mmol/L (21-32); CHLORIDE 95 mmol/L (98-107); COR CA(FOR HYPOALB) 9.9 mg/dL (8.5-10.1); COR NA(FOR HYPERGLY) 139 mmol/L (136-145); CREATININE 0.45 mg/dL (0.55-1.02); SODIUM 139 mmol/L (136-145); TOTAL PROTEIN 6.5 g/dL (6.4-8.2); eGFR NON BLACK RACES > 60 (>60)
[2019-04-19] MEDS: MORPHINE SULFATE INJ 2 MG INJ IVP PRN ×2 (07:01→15:36)
--- NOTE | 2019-04-19 07:55 | RAD ---
Exam: Portable chest History: 69-year-old female with shortness of breath. History of lung cancer. Comparison: Previous chest radiograph from 04/18/2019 Findings: Heart size is stable. Hyperinflation is again noted, consistent with COPD. Persistent opacity at the left base may be related to a combination of airspace disease and pleural effusion. These findings have progressed slightly since the previous exam. Right basilar atelectasis is noted. Visualized aspect of the bony thorax is unremarkable. Impression: 1. COPD 2. Increasing opacity at the left base may represent a combination of infiltrate and pleural effusion. Reported By:
[2019-04-19] MEDS: Atrovent NEB TX 0.02% NEB SCH ×4 (08:28→20:18)
[2019-04-19] MEDS: PULMICORT NEB TX 0.5 MG NEB SCH ×2 (08:28→20:18)
[2019-04-19] MEDS ORDERED: VALIUM INJ IVP PRN (09:05)
[2019-04-19] MEDS ORDERED: VALIUM INJ ONE (09:35)
[2019-04-19] MEDS ORDERED: NS 250 ML IV 250 ML IV ONE (09:45)
[2019-04-19] MEDS: DIFLUCAN 200 MG IV PREMIX* 200 MG/100 ML BAG IV SCH (09:50)
[2019-04-19] MEDS: LEVAQUIN PREMIX IV 500 MG 500 MG/100 ML BAG IV SCH (09:51)
[2019-04-19] MEDS: EFFEXOR XR 37.5 MG CAP PO SCH (09:56)
[2019-04-19] MEDS: MEGACE PO SCH (09:56)
[2019-04-19] MEDS: LOVENOX INJ 40 MG SYR SC SCH (09:56)
[2019-04-19] MEDS: MILK OF MAGNESIA PO SCH (09:57)
[2019-04-19] MEDS: SYNTHROID 88 mcg TAB PO SCH (09:57)
[2019-04-19] MEDS: PROTONIX INJ 40 MG VIAL IVP SCH ×2 (11:27→21:15)
--- NOTE | 2019-04-19 12:31 | PCM.PROG ---
Progress Note - Progress Note for Day of Date of Exam: 04/16/19 - Subjective Subjective: IS BEING TREATED FOR SHORTNESS OF BREATH, LOWER EXTREMITY EDEMA, CHF, AND PNEUMONIA. SHE HAS A NEW DIAGNOSIS OF STAGE 3 LUNG CANCER AND HAS A HISTORY OF COPD. SHE HAS BEEN UTILIZING THE BIPAP THROUGHOUT THE NIGHT. TODAY, SHE IS LYING IN BED WITH EYES CLOSED ON MORNING ROUNDS. SHE AWAKENS TO VERBAL STIMULI. SHE CONTINUES WITH COMPLAINTS OF SHORTNESS OF BREATH TODAY. SHE IS IN LESS DISTRESS TODAY. FAMILY REPORTS THAT SHE IS NOT EATING. ON EXAMINATION, HEART IS REGULAR IN RATE AND RHYTHM. BILATERAL LUNGS ARE NOTED WITH DIMINISHED LUNG SOUNDS THROUGHOUT. ABDOMEN IS FLAT, SOFT, AND NON-TENDER WITH NORMAL BOWEL SOUNDS IN ALL QUADRANTS. THERE IS TRACE EDEMA TO LOWER EXTREMITIES. HER VITALS THIS MORNING ARE: 97.6-80-22-95%-125/78. LABS WERE OBTAINED. ABNORMAL LAB VALUES INCLUDE THE FOLLOWING: WBC 13.8, CARBON DIOXIDE 32.4, BUN 33, CREATININE 0.52, GLUCOSE 130, TOTAL PROTEIN 5.4, ALBUMIN 2.3. A CHEST XRAY WAS OBTAINED AND REVEALED: Improving pattern of aeration. AN ABG WAS OBTAINED AND REVEALED: PH 7.460, PC02 70.0, P02 110.0, HC03 49.8, 02 SATURATION 99%, BASE EXCESS 21.9. SHE IS CURRENTLY RECEIVING RESPIRATORY TREATMENTS, LEVAQUIN 500MG IV DAILY, SOLU-MEDROL 80MG IV Q8H AJ, DIFLUCAN 200MG IV DAILY, MAGIC MOUTHWASH, VALIUM TID, AND NORMAL SALINE AT 50ML/HR. WE WILL CONTINUE WITH CURRENT PLAN OF CARE TODAY AND ADD TPN AND MEGACE. OTHERWISE, WE WILL FOLLOW UP WITH AM LABS, CHEST XRAY, AND ABG AND CONTINUE TO MONITOR. - Past Medical Family Social History Past Med/Fam/Surg Hx: No changes since H&P Allergies: Allergies Penicillins Allergy (Verified 04/10/19 11:35) - Review of Systems ROS: No change since H&P - Vital Signs and I&O's Vital Signs: Temperature 97.5 F Pulse Rate [Right Brachial] 23 Pulse Rate 100 Respiratory Rate 20 Blood Pressure [Right Arm] 121/80 Blood Pressure 124/86 O2 Sat by Pulse Oximetry 94 Intake and Output: Intake & Output 04/17/19 04/18/19 04/19/19 04/20/19 11:59 11:59 11:59 11:59 Intake Total 1621 / 1621 1674 / 1674 893 / 893 Output Total 3150 / 3150 3250 / 3250 3400 / 3400 Balance -1529 / -1529 -1576 / -1576 -2507 / -2507 - Physical Exam Oriented: Normal Eyes: Normal Ear: Normal Nose: Normal Throat: Normal Respiratory: Generalized, Diminished Cardiovascular: Normal, Edema ( BILATERAL LOWER EXTREMITY TRACE EDEMA) : Normal Auscultation: Bowel Sounds: Normal Palpation: Normal Tenderness: Normal Skin: Decreased Turgur Musculoskeletal: Normal Psychiatric: Anxiety Affect: Anxious Speech Pattern: Clear, Appropriate - Laboratory and Diagnostics Result Diagrams: 04/19/19 05:54 04/19/19 05:54 Labs: 04/13/19 09:33 Sputum - Expectorated Sputum Sputum Culture - Final Klebsiella Pneumoniae 04/13/19 09:33 Sputum - Expectorated Sputum - Final Laboratory WBC 19.9 X10^3/uL (3.6-10.0) H 04/19/19 05:54 RBC 5.44 X10^6/uL (3.5-5.4) H 04/19/19 05:54 Hgb 16.8 g/dL (12.0-16.0) H 04/19/19 05:54 Hct 49.7 % (36.0-47.0) H 04/19/19 05:54 MCV 91.5 fL (80.0-100.0) 04/19/19 05:54 MCH 30.9 pg (27.0-34.0) 04/19/19 05:54 MCHC 33.7 g/dL (33.0-35.0) 04/19/19 05:54 RDW 15.2 % (11.6-16.5) 04/19/19 05:54 Plt Count 280 X10^3/uL (150.0-450.0) 04/19/19 05:54 Plt Count Comment Adequate (ADEQUATE) 04/18/19 06:05 MPV 7.0 fL (7.4-11.0) L 04/19/19 05:54 Neut % (Auto) 89.2 % (42.0-75.0) H 04/19/19 05:54 Lymph % (Auto) 3.1 % (21.0-51.0) L 04/19/19 05:54 [place] % (Auto) 7.6 % (0.0-13.0) 04/19/19 05:54 Eos % (Auto) 0.0 % (0.9-2.9) L 04/19/19 05:54 Baso % (Auto) 0.1 % (0.2-1.0) L 04/19/19 05:54 Neut # (Auto) 17.8 x10^3/uL (2.2-4.8) H 04/19/19 05:54 Lymph # (Auto) 0.6 X10^3/uL (1.3-2.9) L 04/19/19 05:54 [place] # (Auto) 1.5 x10^3/uL (0.3-0.8) H 04/19/19 05:54 Eos # (Auto) 0.0 x10^3/uL (0.0-0.2) 04/19/19 05:54 Baso # (Auto) 0.0 X10^3/uL (0.0-0.1) 04/19/19 05:54 Absolute Nucleated RBC 0.0 /100WBC 04/19/19 05:54 Total Counted 100 04/18/19 06:05 Neutrophils % (Manual) 93 % (39-76) H 04/18/19 06:05 Band Neutrophils % 3 % (0-10) 04/17/19 04:32 Lymphocytes % (Manual) 1 % (13-43) L 04/18/19 06:05 Monocytes % (Manual) 6 % (4-9) 04/18/19 06:05 Plt Morphology Comment Normal (NORMAL) 04/18/19 06:05 RBC Morphology Normal (NORMAL) 04/18/19 06:05 Sample Site Rbra 04/18/19 21:54 ABG pH 7.510 (7.35-7.45) H 04/18/19 21:54 ABG pCO2 67.0 mmHg (35.0-45.0) H* 04/18/19 21:54 ABG pO2 64.0 mmHg (80.0-100.0) L 04/18/19 21:54 ABG HCO3 53.5 mmol/L (22-26) H* 04/18/19 21:54 ABG O2 Saturation 94.0 % (90-100) 04/18/19 21:54 ABG Base Excess 26.0 mmol/L (-2.0-2.0) H 04/18/19 21:54 Brodie Test Na 04/18/19 21:54 A-a Gradient 280.0 mmHg 04/18/19 21:54 FiO2 60.0 04/18/19 21:54 Blood Gas Comments Antonio abg well-mtf 04/18/19 21:54 Sodium 139 mmol/L (136-145) 04/19/19 05:54 Corrected Sodium 139 mmol/L (136-145) 04/19/19 05:54 Potassium 3.6 mmol/L (3.5-5.1) 04/19/19 05:54 Chloride 95 mmol/L (98-107) L 04/19/19 05:54 Carbon Dioxide 39.6 mmol/L (21-32) H 04/19/19 05:54 BUN 34 mg/dL (7-18) H 04/19/19 05:54 Creatinine 0.45 mg/dL (0.55-1.02) L 04/19/19 05:54 Est GFR (MDRD) Af Amer > 60 (>60) 04/19/19 05:54 Est GFR (MDRD) Non-Af > 60 (>60) 04/19/19 05:54 Glucose 112 mg/dL (65-99) H 04/19/19 05:54 Calcium 9.0 mg/dL (8.5-10.1) 04/19/19 05:54 Corrected Calcium 9.9 mg/dL (8.5-10.1) 04/19/19 05:54 Magnesium 2.4 mg/dL (1.7-2.9) 04/16/19 05:50 Total Bilirubin 0.80 mg/dL (0.2-1.0) 04/19/19 05:54 AST 32 Units/L (15-37) 04/19/19 05:54 ALT 90 Units/L (12-78) H 04/19/19 05:54 Alkaline Phosphatase 94 Units/L (46-116) 04/19/19 05:54 B-Natriuretic Peptide 85.8 pg/mL (0-79) H 04/10/19 09:55 Total Protein 6.5 g/dL (6.4-8.2) 04/19/19 05:54 Albumin 2.9 g/dL (3.4-5.0) L 04/19/19 05:54 Globulin 3.6 g/dL (2.5-4.5) 04/19/19 05:54 Albumin/Globulin Ratio 0.8 Ratio (1.1-2.1) L 04/19/19 05:54 Prealbumin 23.6 mg/dL (18-35.7) 04/17/19 04:32 Specimen Type Clean catch urine 04/18/19 19:50 Urine Color Bloody (YELLOW) 04/18/19 19:50 Urine Appearance Hazy (CLEAR) 04/18/19 19:50 Urine pH 7.0 (5.0 - 8.0) 04/18/19 19:50 Ur Specific [place] 1.010 (1.000-1.030) 04/18/19 19:50 Urine Protein 3+ (NEGATIVE) 04/18/19 19:50 Urine Glucose (UA) Negative (NEGATIVE) 04/18/19 19:50 Urine Ketones Negative (NEGATIVE) 04/18/19 19:50 Urine Occult Blood 5+ (NEGATIVE) 04/18/19 19:50 Urine Nitrite Negative (NEGATIVE) 04/18/19 19:50 Urine Bilirubin Negative (NEGATIVE) 04/18/19 19:50 Urine Urobilinogen Normal (NORMAL) 04/18/19 19:50 Ur Leukocyte Esterase 2+ (NEGATIVE) 04/18/19 19:50 Urine RBC Tntc /HPF (0-3) A 04/18/19 19:50 Urine WBC 0-2 /HPF (0-5) 04/18/19 19:50 Ur Squamous Epith Cells Negative /HPF (NEGATIVE) 04/18/19 19:50 Urine Bacteria Negative /HPF (NEGATIVE) 04/18/19 19:50 Ur Culture Indicated? No/not indicated 04/18/19 19:50 - Plan (1) Pneumonia Status: Acute Qualifiers: Pneumonia type: due to unspecified organism Laterality: bilateral Lung location: unspecified part of lung Qualified Code(s): J18.9 - Pneumonia, unspecified organism Plan: LEVAQUIN IV DAILY, RESPIRATORY TX, SUPPLEMENTAL OXYGEN, BIPAP, CONTINUE TO MONITOR (2) CHF (congestive heart failure) Status: Chronic Qualifiers: Heart failure type: unspecified Heart failure chronicity: acute Qualified Code(s): I50.9 - Heart failure, unspecified Plan: IV LASIX, RESPIRATORY TX, BIPAP, CONTINUE TO MONITOR (3) Respiratory failure with hypoxia Status: Acute Qualifiers: Chronicity: acute Qualified Code(s): J96.01 - Acute respiratory failure with hypoxia (4) Hypoproteinemia Status: Acute Plan: TPN AND MEGACE (5) Lung cancer Status: Chronic Qualifiers: Laterality: unspecified laterality Lung location: unspecified part of lung Qualified Code(s): C34.90 - Malignant neoplasm of unspecified part of unspecified bronchus or lung (6) Hyponatremia Status: Resolved (7) COPD (chronic obstructive pulmonary disease) Status: Chronic Qualifiers: COPD type: unspecified COPD Qualified Code(s): J44.9 - Chronic obstructive pulmonary disease, unspecified
--- NOTE | 2019-04-19 12:41 | PCM.PROG ---
Progress Note - Progress Note for Day of Date of Exam: 04/17/19 - Subjective Subjective: IS BEING TREATED FOR SHORTNESS OF BREATH, LOWER EXTREMITY EDEMA, CHF, AND PNEUMONIA. SHE HAS A NEW DIAGNOSIS OF STAGE 3 LUNG CANCER AND HAS A HISTORY OF COPD. SHE HAS BEEN UTILIZING THE BIPAP THROUGHOUT THE NIGHT. TODAY, SHE IS ALERT, LYING IN BED ON MORNING ROUNDS. SHE CONTINUES TO REPORT SLIGHT IMPROVEMENT IN SYMPTOMS. ON EXAMINATION, HEART IS REGULAR IN RATE AND RHYTHM. BILATERAL LUNGS ARE NOTED WITH DIMINISHED LUNG SOUNDS THROUGHOUT. ABDOMEN IS FLAT, SOFT, AND NON-TENDER WITH NORMAL BOWEL SOUNDS IN ALL QUADRANTS. THERE IS TRACE EDEMA TO LOWER EXTREMITIES. HER VITALS THIS MORNING ARE: 98.1-94-26-97%-129/64. LABS WERE OBTAINED. ABNORMAL LAB VALUES INCLUDE THE FOLLOWING: WBC 13.8, CARBON DIOXIDE 32.4, BUN 33, CREATININE 0.52, GLUCOSE 130, TOTAL PROTEIN 5.4, ALBUMIN 2.3. A CHEST XRAY WAS OBTAINED AND REVEALED: Improving pattern of aeration. AN ABG WAS OBTAINED AND REVEALED: PH 7.520, PC02 64.0, P02 111.0, HC03 52.3, 02 SATURATION 99.0, BASE EXCESS 25.2. SHE IS CURRENTLY RECEIVING RESPIRATORY TREATMENTS, LEVAQUIN 500MG IV DAILY, SOLU-MEDROL 80MG IV Q8H AJ, DIFLUCAN 200MG IV DAILY, MAGIC MOUTHWASH, VALIUM TID, AND TPN. WE WILL CONTINUE WITH CURRENT PLAN OF CARE TODAY AND CONSULT FOR A PORT A CATH DUE TO POOR PERIPHERAL ACCESS. OTHERWISE, WE WILL FOLLOW UP WITH AM LABS, CHEST XRAY, AND ABG AND CONTINUE TO MONITOR. - Past Medical Family Social History Past Med/Fam/Surg Hx: No changes since H&P Allergies: Allergies Penicillins Allergy (Verified 04/10/19 11:35) - Review of Systems ROS: No change since H&P - Vital Signs and I&O's Vital Signs: Temperature 97.5 F Pulse Rate [Right Brachial] 23 Pulse Rate 100 Respiratory Rate 20 Blood Pressure [Right Arm] 121/80 Blood Pressure 124/86 O2 Sat by Pulse Oximetry 94 Intake and Output: Intake & Output 04/17/19 04/18/19 04/19/19 04/20/19 11:59 11:59 11:59 11:59 Intake Total 1621 / 1621 1674 / 1674 893 / 893 Output Total 3150 / 3150 3250 / 3250 3400 / 3400 Balance -1529 / -1529 -1576 / -1576 -2507 / -2507 - Physical Exam Oriented: Normal Eyes: Normal Ear: Normal Nose: Normal Throat: Normal Respiratory: Generalized, Diminished Cardiovascular: Normal, Edema ( BILATERAL LOWER EXTREMITY TRACE EDEMA) : Normal Auscultation: Bowel Sounds: Normal Palpation: Normal Tenderness: Normal Skin: Decreased Turgur Musculoskeletal: Normal Psychiatric: Anxiety Affect: Anxious Speech Pattern: Clear, Appropriate - Laboratory and Diagnostics Result Diagrams: 04/19/19 05:54 04/19/19 05:54 Labs: 04/13/19 09:33 Sputum - Expectorated Sputum Sputum Culture - Final Klebsiella Pneumoniae 04/13/19 09:33 Sputum - Expectorated Sputum - Final Laboratory WBC 19.9 X10^3/uL (3.6-10.0) H 04/19/19 05:54 RBC 5.44 X10^6/uL (3.5-5.4) H 04/19/19 05:54 Hgb 16.8 g/dL (12.0-16.0) H 04/19/19 05:54 Hct 49.7 % (36.0-47.0) H 04/19/19 05:54 MCV 91.5 fL (80.0-100.0) 04/19/19 05:54 MCH 30.9 pg (27.0-34.0) 04/19/19 05:54 MCHC 33.7 g/dL (33.0-35.0) 04/19/19 05:54 RDW 15.2 % (11.6-16.5) 04/19/19 05:54 Plt Count 280 X10^3/uL (150.0-450.0) 04/19/19 05:54 Plt Count Comment Adequate (ADEQUATE) 04/18/19 06:05 MPV 7.0 fL (7.4-11.0) L 04/19/19 05:54 Neut % (Auto) 89.2 % (42.0-75.0) H 04/19/19 05:54 Lymph % (Auto) 3.1 % (21.0-51.0) L 04/19/19 05:54 [place] % (Auto) 7.6 % (0.0-13.0) 04/19/19 05:54 Eos % (Auto) 0.0 % (0.9-2.9) L 04/19/19 05:54 Baso % (Auto) 0.1 % (0.2-1.0) L 04/19/19 05:54 Neut # (Auto) 17.8 x10^3/uL (2.2-4.8) H 04/19/19 05:54 Lymph # (Auto) 0.6 X10^3/uL (1.3-2.9) L 04/19/19 05:54 [place] # (Auto) 1.5 x10^3/uL (0.3-0.8) H 04/19/19 05:54 Eos # (Auto) 0.0 x10^3/uL (0.0-0.2) 04/19/19 05:54 Baso # (Auto) 0.0 X10^3/uL (0.0-0.1) 04/19/19 05:54 Absolute Nucleated RBC 0.0 /100WBC 04/19/19 05:54 Total Counted 100 04/18/19 06:05 Neutrophils % (Manual) 93 % (39-76) H 04/18/19 06:05 Band Neutrophils % 3 % (0-10) 04/17/19 04:32 Lymphocytes % (Manual) 1 % (13-43) L 04/18/19 06:05 Monocytes % (Manual) 6 % (4-9) 04/18/19 06:05 Plt Morphology Comment Normal (NORMAL) 04/18/19 06:05 RBC Morphology Normal (NORMAL) 04/18/19 06:05 Sample Site Rb 04/18/19 21:54 ABG pH 7.510 (7.35-7.45) H 04/18/19 21:54 ABG pCO2 67.0 mmHg (35.0-45.0) H* 04/18/19 21:54 ABG pO2 64.0 mmHg (80.0-100.0) L 04/18/19 21:54 ABG HCO3 53.5 mmol/L (22-26) H* 04/18/19 21:54 ABG O2 Saturation 94.0 % (90-100) 04/18/19 21:54 ABG Base Excess 26.0 mmol/L (-2.0-2.0) H 04/18/19 21:54 Brodie Test Na 04/18/19 21:54 A-a Gradient 280.0 mmHg 04/18/19 21:54 FiO2 60.0 04/18/19 21:54 Blood Gas Comments Antonio abg well-mtf 04/18/19 21:54 Sodium 139 mmol/L (136-145) 04/19/19 05:54 Corrected Sodium 139 mmol/L (136-145) 04/19/19 05:54 Potassium 3.6 mmol/L (3.5-5.1) 04/19/19 05:54 Chloride 95 mmol/L (98-107) L 04/19/19 05:54 Carbon Dioxide 39.6 mmol/L (21-32) H 04/19/19 05:54 BUN 34 mg/dL (7-18) H 04/19/19 05:54 Creatinine 0.45 mg/dL (0.55-1.02) L 04/19/19 05:54 Est GFR (MDRD) Af Amer > 60 (>60) 04/19/19 05:54 Est GFR (MDRD) Non-Af > 60 (>60) 04/19/19 05:54 Glucose 112 mg/dL (65-99) H 04/19/19 05:54 Calcium 9.0 mg/dL (8.5-10.1) 04/19/19 05:54 Corrected Calcium 9.9 mg/dL (8.5-10.1) 04/19/19 05:54 Magnesium 2.4 mg/dL (1.7-2.9) 04/16/19 05:50 Total Bilirubin 0.80 mg/dL (0.2-1.0) 04/19/19 05:54 AST 32 Units/L (15-37) 04/19/19 05:54 ALT 90 Units/L (12-78) H 04/19/19 05:54 Alkaline Phosphatase 94 Units/L (46-116) 04/19/19 05:54 B-Natriuretic Peptide 85.8 pg/mL (0-79) H 04/10/19 09:55 Total Protein 6.5 g/dL (6.4-8.2) 04/19/19 05:54 Albumin 2.9 g/dL (3.4-5.0) L 04/19/19 05:54 Globulin 3.6 g/dL (2.5-4.5) 04/19/19 05:54 Albumin/Globulin Ratio 0.8 Ratio (1.1-2.1) L 04/19/19 05:54 Prealbumin 23.6 mg/dL (18-35.7) 04/17/19 04:32 Specimen Type Clean catch urine 04/18/19 19:50 Urine Color Bloody (YELLOW) 04/18/19 19:50 Urine Appearance Hazy (CLEAR) 04/18/19 19:50 Urine pH 7.0 (5.0 - 8.0) 04/18/19 19:50 Ur Specific [place] 1.010 (1.000-1.030) 04/18/19 19:50 Urine Protein 3+ (NEGATIVE) 04/18/19 19:50 Urine Glucose (UA) Negative (NEGATIVE) 04/18/19 19:50 Urine Ketones Negative (NEGATIVE) 04/18/19 19:50 Urine Occult Blood 5+ (NEGATIVE) 04/18/19 19:50 Urine Nitrite Negative (NEGATIVE) 04/18/19 19:50 Urine Bilirubin Negative (NEGATIVE) 04/18/19 19:50 Urine Urobilinogen Normal (NORMAL) 04/18/19 19:50 Ur Leukocyte Esterase 2+ (NEGATIVE) 04/18/19 19:50 Urine RBC Tntc /HPF (0-3) A 04/18/19 19:50 Urine WBC 0-2 /HPF (0-5) 04/18/19 19:50 Ur Squamous Epith Cells Negative /HPF (NEGATIVE) 04/18/19 19:50 Urine Bacteria Negative /HPF (NEGATIVE) 04/18/19 19:50 Ur Culture Indicated? No/not indicated 04/18/19 19:50 - Plan (1) Pneumonia Status: Acute Qualifiers: Pneumonia type: due to unspecified organism Laterality: bilateral Lung location: unspecified part of lung Qualified Code(s): J18.9 - Pneumonia, unspecified organism Plan: LEVAQUIN IV DAILY, RESPIRATORY TX, SUPPLEMENTAL OXYGEN, BIPAP, CONTINUE TO MONITOR (2) CHF (congestive heart failure) Status: Chronic Qualifiers: Heart failure type: unspecified Heart failure chronicity: acute Qualified Code(s): I50.9 - Heart failure, unspecified Plan: IV LASIX, RESPIRATORY TX, BIPAP, CONTINUE TO MONITOR (3) Respiratory failure with hypoxia Status: Acute Qualifiers: Chronicity: acute Qualified Code(s): J96.01 - Acute respiratory failure with hypoxia (4) Hypoproteinemia Status: Acute Plan: TPN AND MEGACE (5) Lung cancer Status: Chronic Qualifiers: Laterality: unspecified laterality Lung location: unspecified part of lung Qualified Code(s): C34.90 - Malignant neoplasm of unspecified part of unspecified bronchus or lung (6) Hyponatremia Status: Resolved (7) COPD (chronic obstructive pulmonary disease) Status: Chronic Qualifiers: COPD type: unspecified COPD Qualified Code(s): J44.9 - Chronic obstructive pulmonary disease, unspecified
[2019-04-19] MEDS: PROCALAMINE 3 % 1,000 ML IV SCH (14:23)
[2019-04-19] MEDS: VALIUM INJ IVP PRN (16:54)
[2019-04-19] MEDS ORDERED: NS 1000 ML 1,000 ML ONE (18:30)
[2019-04-19] MEDS: NS 1000 ML 1,000 ML IV SCH ×2 (18:37→19:15)
--- NOTE | 2019-04-19 19:34 | PCM.PROG ---
Progress Note - Progress Note for Day of Date of Exam: 04/18/19 - Subjective Subjective: IS BEING TREATED FOR SHORTNESS OF BREATH, LOWER EXTREMITY EDEMA, CHF, AND PNEUMONIA. SHE HAS A NEW DIAGNOSIS OF STAGE 3 LUNG CANCER AND HAS A HISTORY OF COPD. SHE HAS BEEN UTILIZING THE BIPAP THROUGHOUT THE DAY AND NIGHT. TODAY, SHE IS ALERT, LYING IN BED ON MORNING ROUNDS. SHE CONTINUES TO REPORT SLIGHT IMPROVEMENT IN SYMPTOMS. ON EXAMINATION, HEART IS REGULAR IN RATE AND RHYTHM. BILATERAL LUNGS ARE NOTED WITH DIMINISHED LUNG SOUNDS THROUGHOUT. ABDOMEN IS FLAT, SOFT, AND NON-TENDER WITH NORMAL BOWEL SOUNDS IN ALL QUADRANTS. THERE IS TRACE EDEMA TO LOWER EXTREMITIES. HER VITALS THIS MORNING ARE: 98.4-96-33-89%[place]-159/100. LABS WERE OBTAINED. ABNORMAL LAB VALUES INCLUDE THE FO LLOWING: WBC 19.3, HGB 16.5, HCT 49.1, CHLORIDE 97, CARBON DIOXIDE 42.4, BUN 33, GLUCOSE 143, ALT 96, ALBUMIN 3.1. AN ABG WAS OBTAINED AND REVEALED: PH 7.520, PC02 65.0, P02 58.0, HC03 53.1, 02 SATURATION 92.0, BASE EXCESS 25.9. SHE IS CURRENTLY RECEIVING RESPIRATORY TREATMENTS, LEVAQUIN 500MG IV DAILY, SOLU-MEDROL 80MG IV Q8H AJ, DIFLUCAN 200MG IV DAILY, MAGIC MOUTHWASH, VALIUM TID, AND TPN. WE WILL CONTINUE WITH CURRENT PLAN OF CARE TODAY. OTHERWISE, WE WILL FOLLOW UP WITH AM LABS, CHEST XRAY, AND ABG AND CONTINUE TO MONITOR. - Past Medical Family Social History Past Med/Fam/Surg Hx: No changes since H&P Allergies: Allergies Penicillins Allergy (Verified 04/10/19 11:35) - Review of Systems ROS: No change since H&P - Vital Signs and I&O's Vital Signs: Temperature 97 F Pulse Rate [Right Brachial] 23 Pulse Rate 99 Respiratory Rate 36 Blood Pressure [Right Arm] 121/80 Blood Pressure 161/100 O2 Sat by Pulse Oximetry 91 Intake and Output: Intake & Output 04/17/19 04/18/19 04/19/19 04/20/19 11:59 11:59 11:59 11:59 Intake Total 1621 / 1621 1674 / 1674 893 / 893 550 / 550 Output Total 3150 / 3150 3250 / 3250 3400 / 3400 600 / 600 Balance -1529 / -1529 -1576 / -1576 -2507 / -2507 -50 / -50 - Physical Exam Oriented: Normal Eyes: Normal Ear: Normal Nose: Normal Throat: Normal Respiratory: Generalized, Diminished Cardiovascular: Normal, Edema ( BILATERAL LOWER EXTREMITY TRACE EDEMA) : Normal Auscultation: Bowel Sounds: Normal Tenderness: Normal Skin: Decreased Turgur Musculoskeletal: Normal Psychiatric: Anxiety Affect: Anxious Speech Pattern: Clear, Appropriate - Laboratory and Diagnostics Result Diagrams: 04/19/19 05:54 04/19/19 05:54 Labs: 04/13/19 09:33 Sputum - Expectorated Sputum Sputum Culture - Final Klebsiella Pneumoniae 04/13/19 09:33 Sputum - Expectorated Sputum - Final Laboratory WBC 19.9 X10^3/uL (3.6-10.0) H 04/19/19 05:54 RBC 5.44 X10^6/uL (3.5-5.4) H 04/19/19 05:54 Hgb 16.8 g/dL (12.0-16.0) H 04/19/19 05:54 Hct 49.7 % (36.0-47.0) H 04/19/19 05:54 MCV 91.5 fL (80.0-100.0) 04/19/19 05:54 MCH 30.9 pg (27.0-34.0) 04/19/19 05:54 MCHC 33.7 g/dL (33.0-35.0) 04/19/19 05:54 RDW 15.2 % (11.6-16.5) 04/19/19 05:54 Plt Count 280 X10^3/uL (150.0-450.0) 04/19/19 05:54 Plt Count Comment Adequate (ADEQUATE) 04/18/19 06:05 MPV 7.0 fL (7.4-11.0) L 04/19/19 05:54 Neut % (Auto) 89.2 % (42.0-75.0) H 04/19/19 05:54 Lymph % (Auto) 3.1 % (21.0-51.0) L 04/19/19 05:54 [place] % (Auto) 7.6 % (0.0-13.0) 04/19/19 05:54 Eos % (Auto) 0.0 % (0.9-2.9) L 04/19/19 05:54 Baso % (Auto) 0.1 % (0.2-1.0) L 04/19/19 05:54 Neut # (Auto) 17.8 x10^3/uL (2.2-4.8) H 04/19/19 05:54 Lymph # (Auto) 0.6 X10^3/uL (1.3-2.9) L 04/19/19 05:54 [place] # (Auto) 1.5 x10^3/uL (0.3-0.8) H 04/19/19 05:54 Eos # (Auto) 0.0 x10^3/uL (0.0-0.2) 04/19/19 05:54 Baso # (Auto) 0.0 X10^3/uL (0.0-0.1) 04/19/19 05:54 Absolute Nucleated RBC 0.0 /100WBC 04/19/19 05:54 Total Counted 100 04/18/19 06:05 Neutrophils % (Manual) 93 % (39-76) H 04/18/19 06:05 Band Neutrophils % 3 % (0-10) 04/17/19 04:32 Lymphocytes % (Manual) 1 % (13-43) L 04/18/19 06:05 Monocytes % (Manual) 6 % (4-9) 04/18/19 06:05 Plt Morphology Comment Normal (NORMAL) 04/18/19 06:05 RBC Morphology Normal (NORMAL) 04/18/19 06:05 Sample Site [facility] 04/18/19 21:54 ABG pH 7.510 (7.35-7.45) H 04/18/19 21:54 ABG pCO2 67.0 mmHg (35.0-45.0) H* 04/18/19 21:54 ABG pO2 64.0 mmHg (80.0-100.0) L 04/18/19 21:54 ABG HCO3 53.5 mmol/L (22-26) H* 04/18/19 21:54 ABG O2 Saturation 94.0 % (90-100) 04/18/19 21:54 ABG Base Excess 26.0 mmol/L (-2.0-2.0) H 04/18/19 21:54 Brodie Test Na 04/18/19 21:54 A-a Gradient 280.0 mmHg 04/18/19 21:54 FiO2 60.0 04/18/19 21:54 Blood Gas Comments Antonio abg well-mtf 04/18/19 21:54 Sodium 139 mmol/L (136-145) 04/19/19 05:54 Corrected Sodium 139 mmol/L (136-145) 04/19/19 05:54 Potassium 3.6 mmol/L (3.5-5.1) 04/19/19 05:54 Chloride 95 mmol/L (98-107) L 04/19/19 05:54 Carbon Dioxide 39.6 mmol/L (21-32) H 04/19/19 05:54 BUN 34 mg/dL (7-18) H 04/19/19 05:54 Creatinine 0.45 mg/dL (0.55-1.02) L 04/19/19 05:54 Est GFR (MDRD) Af Amer > 60 (>60) 04/19/19 05:54 Est GFR (MDRD) Non-Af > 60 (>60) 04/19/19 05:54 Glucose 112 mg/dL (65-99) H 04/19/19 05:54 Calcium 9.0 mg/dL (8.5-10.1) 04/19/19 05:54 Corrected Calcium 9.9 mg/dL (8.5-10.1) 04/19/19 05:54 Magnesium 2.4 mg/dL (1.7-2.9) 04/16/19 05:50 Total Bilirubin 0.80 mg/dL (0.2-1.0) 04/19/19 05:54 AST 32 Units/L (15-37) 04/19/19 05:54 ALT 90 Units/L (12-78) H 04/19/19 05:54 Alkaline Phosphatase 94 Units/L (46-116) 04/19/19 05:54 B-Natriuretic Peptide 85.8 pg/mL (0-79) H 04/10/19 09:55 Total Protein 6.5 g/dL (6.4-8.2) 04/19/19 05:54 Albumin 2.9 g/dL (3.4-5.0) L 04/19/19 05:54 Globulin 3.6 g/dL (2.5-4.5) 04/19/19 05:54 Albumin/Globulin Ratio 0.8 Ratio (1.1-2.1) L 04/19/19 05:54 Prealbumin 23.6 mg/dL (18-35.7) 04/17/19 04:32 Specimen Type Clean catch urine 04/18/19 19:50 Urine Color Bloody (YELLOW) 04/18/19 19:50 Urine Appearance Hazy (CLEAR) 04/18/19 19:50 Urine pH 7.0 (5.0 - 8.0) 04/18/19 19:50 Ur Specific Wallace 1.010 (1.000-1.030) 04/18/19 19:50 Urine Protein 3+ (NEGATIVE) 04/18/19 19:50 Urine Glucose (UA) Negative (NEGATIVE) 04/18/19 19:50 Urine Ketones Negative (NEGATIVE) 04/18/19 19:50 Urine Occult Blood 5+ (NEGATIVE) 04/18/19 19:50 Urine Nitrite Negative (NEGATIVE) 04/18/19 19:50 Urine Bilirubin Negative (NEGATIVE) 04/18/19 19:50 Urine Urobilinogen Normal (NORMAL) 04/18/19 19:50 Ur Leukocyte Esterase 2+ (NEGATIVE) 04/18/19 19:50 Urine RBC Tntc /HPF (0-3) A 04/18/19 19:50 Urine WBC 0-2 /HPF (0-5) 04/18/19 19:50 Ur Squamous Epith Cells Negative /HPF (NEGATIVE) 04/18/19 19:50 Urine Bacteria Negative /HPF (NEGATIVE) 04/18/19 19:50 Ur Culture Indicated? No/not indicated 04/18/19 19:50 - Plan (1) Pneumonia Status: Acute Qualifiers: Pneumonia type: due to unspecified organism Laterality: bilateral Lung location: unspecified part of lung Qualified Code(s): J18.9 - Pneumonia, unspecified organism Plan: LEVAQUIN IV DAILY, RESPIRATORY TX, SUPPLEMENTAL OXYGEN, BIPAP, CONTINUE TO MONITOR (2) CHF (congestive heart failure) Status: Chronic Qualifiers: Heart failure type: unspecified Heart failure chronicity: acute Qualified Code(s): I50.9 - Heart failure, unspecified Plan: IV LASIX, RESPIRATORY TX, BIPAP, CONTINUE TO MONITOR (3) Respiratory failure with hypoxia Status: Acute Qualifiers: Chronicity: acute Qualified Code(s): J96.01 - Acute respiratory failure with hypoxia (4) Hypoproteinemia Status: Acute Plan: TPN AND MEGACE (5) Lung cancer Status: Chronic Qualifiers: Laterality: unspecified laterality Lung location: unspecified part of lung Qualified Code(s): C34.90 - Malignant neoplasm of unspecified part of unspecified bronchus or lung (6) Hyponatremia Status: Resolved (7) COPD (chronic obstructive pulmonary disease) Status: Chronic Qualifiers: COPD type: unspecified COPD Qualified Code(s): J44.9 - Chronic obstructive pulmonary disease, unspecified
[2019-04-20] MEDS: MORPHINE SULFATE INJ 2 MG INJ IVP PRN ×2 (00:57→03:57)
[2019-04-20] MEDS ORDERED: VALIUM INJ ONE (01:31)
[2019-04-20] MEDS: VALIUM INJ IVP PRN ×2 (01:40→06:02)
[2019-04-20] MEDS: XOPENEX 1.25 MG/3 ML NEBULE NEB SCH (05:32)
--- NOTE | 2019-04-20 06:22 | RAD ---
HISTORY: Shortness of breath Study: Chest AP portable Comparison: 04/19/2019, 04/18/2019 Findings: Patient is rotated significantly to the right. Heart is within normal limits in size. The lungs are mildly hyperinflated. Interstitial prominence is again identified and is stable. Increased density in the retrocardiac area of the left lower lobe is slightly improved and could represent effusion, atelectasis, infiltrate or combination. The bony thorax is unremarkable. IMPRESSION: No change mild hyperinflation with interstitial lung changes Improved aeration of the retrocardiac area of the left lower lobe Left pleural effusion unchanged Reported By:
[2019-04-20 06:33] LABS: BASOPHILS % (AUTO) 0.2 % (0.2-1.0); EOSINOPHILS % (AUTO) 0.2 % (0.9-2.9); HEMATOCRIT 50.2 % (36.0-47.0); LYMPHOCYTES # (AUTO) 0.3 X10^3/uL (1.3-2.9); LYMPHOCYTES % (AUTO) 1.5 % (21.0-51.0); MEAN CORPUSCULAR HEMOGLOBIN 30.9 pg (27.0-34.0); MEAN CORPUSCULAR HGB CONC 33.9 g/dL (33.0-35.0); MEAN CORPUSCULAR VOLUME 91.1 fL (80.0-100.0); MEAN PLATELET VOLUME 7.5 fL (7.4-11.0); MONOCYTES # (AUTO) 1.3 x10^3/uL (0.3-0.8); MONOCYTES % (AUTO) 6.1 % (0.0-13.0); NEUTROPHILS # (AUTO) 19.8 x10^3/uL (2.2-4.8); PLATELET COUNT 266 X10^3/uL (150.0-450.0); RED BLOOD COUNT 5.51 X10^6/uL (3.5-5.4); RED CELL DISTRIBUTION WIDTH 14.9 % (11.6-16.5); WHITE BLOOD COUNT 21.5 X10^3/uL (3.6-10.0)
[2019-04-20 06:48] LABS: ALANINE AMINOTRANSFERASE 72 Units/L (12-78); ALBUMIN 2.7 g/dL (3.4-5.0); ALKALINE PHOSPHATASE 90 Units/L (46-116); ASPARTATE AMINO TRANSFERASE 30 Units/L (15-37); BLOOD UREA NITROGEN 35 mg/dL (7-18); CALCIUM 8.7 mg/dL (8.5-10.1); CARBON DIOXIDE 38.4 mmol/L (21-32); CHLORIDE 97 mmol/L (98-107); COR CA(FOR HYPOALB) 9.7 mg/dL (8.5-10.1); COR NA(FOR HYPERGLY) 140 mmol/L (136-145); CREATININE 0.46 mg/dL (0.55-1.02); SODIUM 139 mmol/L (136-145); TOTAL PROTEIN 6.5 g/dL (6.4-8.2); eGFR NON BLACK RACES > 60 (>60)
[2019-04-20] MEDS ORDERED: MORPHINE SULFATE INJ 2 MG INJ IVP PRN (07:14)
[2019-04-20 07:18] LABS: BAND NEUTROPHILS % 2 % (0-10); PLATELET MORPHOLOGY COMMENT NORMAL (NORMAL)
[2019-04-20] MEDS ORDERED: VALIUM INJ IVP PRN (07:20)
[2019-04-20] MEDS: PULMICORT NEB TX 0.5 MG NEB SCH (08:18)
[2019-04-20] MEDS: Atrovent NEB TX 0.02% NEB SCH (08:18)
[2019-04-20] MEDS: LASIX IVP SCH (08:31)
--- NOTE | 2019-04-20 08:35 | PCM.PROG ---
Progress Note - Progress Note for Day of Date of Exam: 04/19/19 - Subjective Subjective: IS BEING TREATED FOR SHORTNESS OF BREATH, LOWER EXTREMITY EDEMA, CHF, AND PNEUMONIA. SHE HAS A NEW DIAGNOSIS OF STAGE 3 LUNG CANCER AND HAS A HISTORY OF COPD. SHE HAS BEEN UTILIZING THE BIPAP THROUGHOUT THE DAY AND NIGHT. TODAY, SHE IS LYING IN BED WITH EYES CLOSED ON MORNING ROUNDS. SHE OPENS EYES TO VERBAL STIMULI. FAMILY REPORTS THAT SHE HAS HAD LABORED BREATHING THROUGHOUT THE NIGHT. ON EXAMINATION, HEART IS REGULAR IN RATE AND RHYTHM. BILATERAL LUNGS ARE NOTED WITH DIMINISHED LUNG SOUNDS THROUGHOUT. ABDOMEN IS FLAT, SOFT, AND NON-TENDER WITH NORMAL BOWEL SOUNDS IN ALL QUADRANTS. THERE IS TRACE EDEMA TO LOWER EXTREMITIES. HER VITALS THIS MORNING ARE: 98.1-99-35-91%-148/95. LABS WERE OBTAINED. ABNORMAL LAB VALUES INCLUDE THE FOLLOWING: WBC 19.9, RBC 5.44, HGB 16.8, HCT 49.7, CHLORIDE 95, CARBON DIOXIDE 39.6, BUN 34, CREATININE 0.45, GLUCOSE 112, ALT 90, ALBUMIN 2.9. SPUTUM CULTURE REPORTS GROWTH OF KLEBSIELLA PNEUMONIAE. CHEST XRAY REVEALED: COPD. Increasing opacity at the left base may represent a combination of infiltrate and pleural effusion. SHE IS CURRENTLY RECEIVING RESPIRATORY TREATMENTS, LEVAQUIN 500MG IV DAILY, SOLU-MEDROL 80MG IV Q8H AJ, DIFLUCAN 200MG IV DAILY, MAGIC MOUTHWASH, VALIUM TID, AND TPN. WE WILL CONTINUE WITH CURRENT PLAN OF CARE TODAY AND START LASIX 20MG IV BID. OTHERWISE, WE WILL FOLLOW UP WITH AM LABS, CHEST XRAY, AND ABG AND CONTINUE TO MONITOR. - Past Medical Family Social History Past Med/Fam/Surg Hx: No changes since H&P Allergies: Allergies Penicillins Allergy (Verified 04/10/19 11:35) - Review of Systems ROS: No change since H&P - Vital Signs and I&O's Vital Signs: Temperature 98.2 F Pulse Rate [Right Brachial] 23 Pulse Rate 107 Respiratory Rate 48 Blood Pressure [Right Arm] 121/80 Blood Pressure 144/93 O2 Sat by Pulse Oximetry 91 Intake and Output: Intake & Output 04/17/19 04/18/19 04/19/19 04/20/19 11:59 11:59 11:59 11:59 Intake Total 1621 / 1621 1674 / 1674 893 / 893 550 / 550 Output Total 3150 / 3150 3250 / 3250 3400 / 3400 2049 Balance -1529 / -1529 -1576 / -1576 -2507 / -2507 -1500 / -1500 - Physical Exam Oriented: Normal Eyes: Normal Ear: Normal Nose: Normal Throat: Normal Respiratory: Generalized, Diminished Cardiovascular: Normal, Edema ( BILATERAL LOWER EXTREMITY TRACE EDEMA) : Normal Auscultation: Bowel Sounds: Normal Palpation: Normal Tenderness: Normal Skin: Decreased Turgur Musculoskeletal: Normal Psychiatric: Anxiety Affect: Anxious Speech Pattern: Clear, Appropriate - Laboratory and Diagnostics Result Diagrams: 04/20/19 05:39 04/20/19 05:39 Labs: 04/13/19 09:33 Sputum - Expectorated Sputum Sputum Culture - Final Klebsiella Pneumoniae 04/13/19 09:33 Sputum - Expectorated Sputum - Final Laboratory WBC 21.5 X10^3/uL (3.6-10.0) H 04/20/19 05:39 RBC 5.51 X10^6/uL (3.5-5.4) H 04/20/19 05:39 Hgb 17.0 g/dL (12.0-16.0) H 04/20/19 05:39 Hct 50.2 % (36.0-47.0) H 04/20/19 05:39 MCV 91.1 fL (80.0-100.0) 04/20/19 05:39 MCH 30.9 pg (27.0-34.0) 04/20/19 05:39 MCHC 33.9 g/dL (33.0-35.0) 04/20/19 05:39 RDW 14.9 % (11.6-16.5) 04/20/19 05:39 Plt Count 266 X10^3/uL (150.0-450.0) 04/20/19 05:39 Plt Count Comment Adequate (ADEQUATE) 04/20/19 05:39 MPV 7.5 fL (7.4-11.0) 04/20/19 05:39 Neut % (Auto) 92.0 % (42.0-75.0) H 04/20/19 05:39 Lymph % (Auto) 1.5 % (21.0-51.0) L 04/20/19 05:39 Ellis % (Auto) 6.1 % (0.0-13.0) 04/20/19 05:39 Eos % (Auto) 0.2 % (0.9-2.9) L 04/20/19 05:39 Baso % (Auto) 0.2 % (0.2-1.0) 04/20/19 05:39 Neut # (Auto) 19.8 x10^3/uL (2.2-4.8) H 04/20/19 05:39 Lymph # (Auto) 0.3 X10^3/uL (1.3-2.9) L 04/20/19 05:39 Ellis # (Auto) 1.3 x10^3/uL (0.3-0.8) H 04/20/19 05:39 Eos # (Auto) 0.0 x10^3/uL (0.0-0.2) 04/20/19 05:39 Baso # (Auto) 0.0 X10^3/uL (0.0-0.1) 04/20/19 05:39 Absolute Nucleated RBC 0.0 /100WBC 04/20/19 05:39 Total Counted 100 04/20/19 05:39 Neutrophils % (Manual) 90 % (39-76) H 04/20/19 05:39 Band Neutrophils % 2 % (0-10) 04/20/19 05:39 Lymphocytes % (Manual) 3 % (13-43) L 04/20/19 05:39 Monocytes % (Manual) 5 % (4-9) 04/20/19 05:39 Plt Morphology Comment Normal (NORMAL) 04/20/19 05:39 RBC Morphology Normal (NORMAL) 04/20/19 05:39 Sample Site Rbra 04/18/19 21:54 ABG pH 7.510 (7.35-7.45) H 04/18/19 21:54 ABG pCO2 67.0 mmHg (35.0-45.0) H* 04/18/19 21:54 ABG pO2 64.0 mmHg (80.0-100.0) L 04/18/19 21:54 ABG HCO3 53.5 mmol/L (22-26) H* 04/18/19 21:54 ABG O2 Saturation 94.0 % (90-100) 04/18/19 21:54 ABG Base Excess 26.0 mmol/L (-2.0-2.0) H 04/18/19 21:54 Brodie Test Na 04/18/19 21:54 A-a Gradient 280.0 mmHg 04/18/19 21:54 FiO2 60.0 04/18/19 21:54 Blood Gas Comments Antonio abg well-mtf 04/18/19 21:54 Sodium 139 mmol/L (136-145) 04/20/19 05:39 Corrected Sodium 140 mmol/L (136-145) 04/20/19 05:39 Potassium 3.9 mmol/L (3.5-5.1) 04/20/19 05:39 Chloride 97 mmol/L (98-107) L 04/20/19 05:39 Carbon Dioxide 38.4 mmol/L (21-32) H 04/20/19 05:39 BUN 35 mg/dL (7-18) H 04/20/19 05:39 Creatinine 0.46 mg/dL (0.55-1.02) L 04/20/19 05:39 Est GFR (MDRD) Af Amer > 60 (>60) 04/20/19 05:39 Est GFR (MDRD) Non-Af > 60 (>60) 04/20/19 05:39 Glucose 130 mg/dL (65-99) H 04/20/19 05:39 Calcium 8.7 mg/dL (8.5-10.1) 04/20/19 05:39 Corrected Calcium 9.7 mg/dL (8.5-10.1) 04/20/19 05:39 Magnesium 2.4 mg/dL (1.7-2.9) 04/16/19 05:50 Total Bilirubin 1.30 mg/dL (0.2-1.0) H 04/20/19 05:39 AST 30 Units/L (15-37) 04/20/19 05:39 ALT 72 Units/L (12-78) 04/20/19 05:39 Alkaline Phosphatase 90 Units/L (46-116) 04/20/19 05:39 B-Natriuretic Peptide 85.8 pg/mL (0-79) H 04/10/19 09:55 Total Protein 6.5 g/dL (6.4-8.2) 04/20/19 05:39 Albumin 2.7 g/dL (3.4-5.0) L 04/20/19 05:39 Globulin 3.8 g/dL (2.5-4.5) 04/20/19 05:39 Albumin/Globulin Ratio 0.7 Ratio (1.1-2.1) L 04/20/19 05:39 Prealbumin 23.6 mg/dL (18-35.7) 04/17/19 04:32 Specimen Type Clean catch urine 04/18/19 19:50 Urine Color Bloody (YELLOW) 04/18/19 19:50 Urine Appearance Hazy (CLEAR) 04/18/19 19:50 Urine pH 7.0 (5.0 - 8.0) 04/18/19 19:50 Ur Specific [place] 1.010 (1.000-1.030) 04/18/19 19:50 Urine Protein 3+ (NEGATIVE) 04/18/19 19:50 Urine Glucose (UA) Negative (NEGATIVE) 04/18/19 19:50 Urine Ketones Negative (NEGATIVE) 04/18/19 19:50 Urine Occult Blood 5+ (NEGATIVE) 04/18/19 19:50 Urine Nitrite Negative (NEGATIVE) 04/18/19 19:50 Urine Bilirubin Negative (NEGATIVE) 04/18/19 19:50 Urine Urobilinogen Normal (NORMAL) 04/18/19 19:50 Ur Leukocyte Esterase 2+ (NEGATIVE) 04/18/19 19:50 Urine RBC Tntc /HPF (0-3) A 04/18/19 19:50 Urine WBC 0-2 /HPF (0-5) 04/18/19 19:50 Ur Squamous Epith Cells Negative /HPF (NEGATIVE) 04/18/19 19:50 Urine Bacteria Negative /HPF (NEGATIVE) 04/18/19 19:50 Ur Culture Indicated? No/not indicated 04/18/19 19:50 - Plan (1) Pneumonia Status: Acute Qualifiers: Pneumonia type: due to unspecified organism Laterality: bilateral Lung location: unspecified part of lung Qualified Code(s): J18.9 - Pneumonia, unspecified organism Plan: LEVAQUIN IV DAILY, RESPIRATORY TX, SUPPLEMENTAL OXYGEN, BIPAP, CONTINUE TO MONITOR (2) CHF (congestive heart failure) Status: Chronic Qualifiers: Heart failure type: unspecified Heart failure chronicity: acute Qualified Code(s): I50.9 - Heart failure, unspecified Plan: IV LASIX, RESPIRATORY TX, BIPAP, CONTINUE TO MONITOR (3) Respiratory failure with hypoxia Status: Acute Qualifiers: Chronicity: acute Qualified Code(s): J96.01 - Acute respiratory failure with hypoxia (4) Hypoproteinemia Status: Acute Plan: TPN AND MEGACE (5) Lung cancer Status: Chronic Qualifiers: Laterality: unspecified laterality Lung location: unspecified part of lung Qualified Code(s): C34.90 - Malignant neoplasm of unspecified part of unspecified bronchus or lung (6) Hyponatremia Status: Resolved (7) COPD (chronic obstructive pulmonary disease) Status: Chronic Qualifiers: COPD type: unspecified COPD Qualified Code(s): J44.9 - Chronic obstructive pulmonary disease, unspecified
[2019-04-20] MEDS: PROTONIX INJ 40 MG VIAL IVP SCH (08:39)
[2019-04-20] MEDS: LEVAQUIN PREMIX IV 500 MG 500 MG/100 ML BAG IV SCH (08:39)
[2019-04-20] MEDS ORDERED: MORPHINE SULFATE INJ 4 MG ONE (09:24)
[2019-04-20] MEDS: DIFLUCAN 200 MG IV PREMIX* 200 MG/100 ML BAG IV SCH (09:40)
[2019-04-20] MEDS ORDERED: VERSED 100 MG in NS 100 ML IV 80 ML IV PRN (09:46)
[2019-04-20] MEDS ORDERED: MORPHINE SULFATE PCA 30 MG IVP PRN ×4 (09:46→19:00)
[2019-04-20] MEDS ORDERED: MORPHINE SULFATE PCA 30 MG ONE (10:33)
[2019-04-20 14:49] VITALS: BP 110/66
[2019-04-20] MEDS ORDERED: NS 1000 ML 1,000 ML IV SCH (15:46)
[2019-04-20] MEDS ORDERED: NS 1000 ML 1,000 ML ONE (15:55)
== END 2019-04-20 21:10 | disposition expired | DRG 177 ==
LOC: ICU → OBSVTOIN 08:12 → MED/SURG 04-20 15:00
PROVIDERS: ADMIT Internal Medicine; ATTEND Internal Medicine
CPT/HCPCS: 36415; 36600; 70470; 71010; 71045; 80053; 81001; 82803; 83735; 83880; 84132; 84134; 85025; 87070; 87077; 87186; 87205; 93306; 93971; 94640; 94660; A4216; A4217; A4222; A4618; A7030; B5200; C9113; S0179; J1450; J1650; J1940; J1956; J2250; J2270; J2271; J2920; J3360; J3475; J3480; J7030; J7050; J7608; J7620; J7626; J7644; S0119; S0181